=== PATIENT | female | born 1960 | race Caucasian/White ===

== ENCOUNTER 2018-06-07 02:44 | Outpatient (CLI) | payer MEDICAID, SELFPAY ==
--- NOTE | 2018-06-11 15:04 | HOLTER_ITS ---
DATE OF DICTATION: June 11, 2018 HOLTER MONITOR REPORT STUDY INDICATION: Chest tightness. REQUESTING PROVIDER: Latasha Vasquez N.P. FINDINGS: The patient was monitored for 1 day and 23 hours. Baseline sinus rhythm. Average heart rate 99 bpm, range 74-146 bpm. 50 PVC's, no PAC's. No pauses greater than 3 seconds or higher degree heart block. One patient event that did not correlate with arrhythmia. FINAL INTERPRETATION: Normal study. Symptoms don't correlate with arrhythmias.
== END 2018-06-07 03:04 ==
PROVIDERS: PCP Nurse Practitioner Family; Visit Provider Nurse Practitioner Family
DX: R07.89 Other chest pain (principal); I49.3 Ventricular premature depolarization
CPT/HCPCS: 93225

== ENCOUNTER 2018-06-11 11:40 | Outpatient (CLI) | payer MEDICAID, SELFPAY | END 2018-06-11 12:00 | PROVIDERS: PCP Nurse Practitioner Family; Visit Provider Nurse Practitioner Family | DX: R07.89 Other chest pain (principal); I49.3 Ventricular premature depolarization | CPT/HCPCS: 93226 ==

== ENCOUNTER 2018-09-04 08:31 | Outpatient (REF) | payer MEDICAID, SELFPAY ==
[2018-09-04 14:44] LABS: Anion Gap 13.6 mmol/L (3-11); BUN 15 mg/dL (7-18); CO2 25.4 mmol/L (21.0-32.0); CREATININE 0.87 mg/dL (0.55-1.02); Calcium 9.2 mg/dL (8.5-10.1); Chloride 94 mmol/L (98-107); Glucose 97 mg/dL (70-100); Potassium 3.8 mmol/L (3.5-5.1); Sodium 133 mmol/L (136-145)
[2018-09-04 15:22] LABS: Calculated LDL 97; Cholesterol 167 mg/dL (50-200); HDL Cholesterol 42 mg/dL (40-60); Triglyceride 144 mg/dL (30-150)
== END 2018-09-04 08:51 ==
LOC: NCHCN 08:31
PROVIDERS: PCP Nurse Practitioner Family; Visit Provider Nurse Practitioner Family
DX: I10 Essential (primary) hypertension (principal); E78.5 Hyperlipidemia, unspecified
CPT/HCPCS: 80048; 80061; 83721

== ENCOUNTER 2018-09-14 02:38 | Outpatient (CLI) | payer MEDICAID, SELFPAY ==
--- NOTE | 2018-09-14 09:22 | PFT_ITS ---
PULMONARY FUNCTION TEST REPORT DATE OF SERVICE: September 14, 2018 REQUESTING PROVIDER: Hugo Andrews DNP, EVELYN Spirometry shows moderately severe obstructive airways disease with significant bronchodilator response. Lung volumes show mild restriction. Diffusion capacity moderately reduced, which is normal when corrected to alveolar volume. Airways resistance normal. IMPRESSION: Combination of moderately severe obstructive airways disease with significant bronchodilator response and mild restrictive lung disease. This results in moderate diffusion defect. Clinical correlation recommended. When this study was compared to previous one from 05/03/11, FVC has declined by 440 cc's, FEV1 has declined by 580 cc's. Clinical correlation recommended. KRISTINA/mick D/
[2018-09-14] MEDS: Inhaler, Assist Device 1 EACH MC (10:57)
[2018-09-14] MEDS: Albuterol HFA 18 GM 200 PUFF INH IH (10:58)
== END 2018-09-14 02:58 ==
PROVIDERS: PCP Nurse Practitioner Family; Visit Provider Student in an Organized Health Care Education/Training Program
DX: R06.02 Shortness of breath (principal); F17.210 Nicotine dependence, cigarettes, uncomplicated; J98.8 Other specified respiratory disorders
CPT/HCPCS: 94060; 94150; 94726; 94729

== ENCOUNTER 2018-09-17 00:23 | Outpatient (CLI) | payer MEDICAID, SELFPAY ==
--- NOTE | 2018-09-17 07:40 | DI.MAMMO_ITS ---
SYMPTOM/DIAGNOSIS: SCREENING, Z12.39 MAMMOGRAMS: Mammograms were interpreted according to the usual protocol including computer analysis with CAD system, tomosynthesis and C view imaging. Comparison is made with exams from 2016 and 2018. The breasts are composed of scattered fibroglandular densities, breast density, Category B. No suspicious masses or suspicious microcalcifications are seen. There has been no significant change. IMPRESSION: Category 1, negative mammogram. Yearly screening mammography is recommended. [facility] ASSESSMENT OF FINDINGS: Negative. Category 1. Patient will receive a letter notifying them of these results. BI-RADS category B. There are scattered areas of fibroglandular density.
== END 2018-09-17 00:43 ==
PROVIDERS: PCP Nurse Practitioner Family; Visit Provider Nurse Practitioner Family
DX: Z12.31 Encounter for screening mammogram for malignant neoplasm of breast (principal)
CPT/HCPCS: 77063; 77067

== ENCOUNTER 2018-11-09 13:21 | Outpatient (REF) | payer MEDICAID, SELFPAY | END 2018-11-09 13:41 | LOC: LBN 13:21 | PROVIDERS: PCP Nurse Practitioner Family; Visit Provider Nurse Practitioner Family | DX: R35.0 Frequency of micturition (principal); R82.90 Unspecified abnormal findings in urine | CPT/HCPCS: 87077; 87086; 87186 ==

== ENCOUNTER 2019-04-13 15:30 | Emergency (ER) | payer MEDICAID, SELFPAY ==
[2019-04-13 15:36] VITALS: BP 122/71; PULSE 96; RESP 18; TEMP 36.7; O2SAT 98
--- NOTE | 2019-04-13 15:55 | W.ED.GENAD ---
Discharge Plan Disposition Patient Disposition: HOME Condition: Good Discharge Details Chief Complaint: Orthopedic Clinical Impression: Distal radial fracture Primary Care Provider: Hugo Andrews ED Provider: Yulisa Hunter Home Meds and New Rx's Prescriptions: Continued sertraline 100 MG tablet 100 mg PO BID RF: 0 quetiapine [Seroquel] 200 MG tablet 600 mg PO BID RF: 0 Discharge Instructions Instructions: Wrist Fracture in Adults (ED) Additional Instructions: Encourage rest, ice, elevation. Tylenol and ibuprofen as needed for discomfort. Please continue with splint to reevaluate orthopedics. Please call orthopedics on Monday, number listed below. Orthopedics will see you on Monday for reduction of your fracture. Please do not eat or drink anything after midnight Monday night. If you develop new or worsening symptoms please seek care urgently once again. Referrals: Hugo Andrews NP [Primary Care Provider] - Russ Lua MD [ [facility] STAFF PHYSICIAN] - Discharge Data Discharge Date/Time-TO BE ENTERED AT DEPARTURE: 04/13/19 18:19 Medical Decision Making Patient is a 58 year old RHD female presenting today with c/c of left forearm pain after FOOSH. States that she fell after slipping on the ice. Did not strike her head, denies LOC, denies pain in neck or back. Only injury to left forearm. Denies numbness/tingling. No pain in the hand, good ROM, no snuffbox tenderness. Has palpable deformity at the distal 1/3 of the forearm on both the radius and ulna. Plan for imaging. X-ray reviewed. Patient has a distal radius fracture that is impacted and dorsally angulated. More distal than I was expecting based on her exam. She also has nondisplaced ulnar fracture. Will consult with orthopedics. Recommendations from orthopedics is to splint hte patient with plan for f/u with them on Monday. ADvised patient be NPO Monday night after midnight. Discussed plan with [facility] patient. She was fitted with a sugar tong splint with plaster. Capillary refill and sensation remains intact. Encouraged RICE. She was given return precautions. All of their questions and concerns were addressed,she is in agreement iwth this plan . HPI General Mode of arrival: ambulatory. Date/Time Provider Initiated Documentation: 04/13/19 15:37. Limitations to Documentation: no limitations. Information obtained by: patient, family and RN notes reviewed. History of Present Illness 58 year old F presents to the emergency department with the chief complaint of left forearm pain, described as severe, with intensity rated at 10. Quality is described as stabbing, and is localized to the left. Patient reports no radiation. Patient started experiencing this minute(s) and it has been constant. Immobilization improves symptom(s), Movement worsens symptoms . Patient notes no other symptoms.. Patient did receive the following treatments prior to arrival, none Related Data Home Medications Medication Instructions Recorded Confirmed quetiapine [Seroquel] 600 mg PO BID 11/13/12 04/13/19 sertraline 100 mg PO BID 11/13/12 04/13/19 Allergies Allergy/AdvReac Type Severity Reaction Status Date / Time Sulfa (Sulfonamide Allergy Severe Unverified 04/13/19 15:48 Antibiotics) Penicillins Allergy Mild Unverified 04/13/19 15:48 aspirin Allergy Unverified 04/13/19 15:48 mushrooms Allergy Severe Uncoded 04/13/19 15:48 General Stated Complaint: Orthopedic AZALIA: 3 Review of Systems Constitutional Constitutional: Reports as per HPI, Denies chills, Denies fever(s), Denies headache(s) and Denies weakness ENT Ears, Nose, Mouth, and Throat: Denies headache(s) Cardiovascular Cardiovascular: Reports as per HPI Respiratory Respiratory: Reports as per HPI and Denies cough Musculoskeletal Musculoskeletal: Reports as per HPI and Denies tingling Integumentary/Breasts Skin/Breast: Reports as per HPI, Denies rash and Denies wounds Neurologic Neurologic: Reports as per HPI, Denies headache(s), Denies tingling, Denies paresthesias and Denies weakness [facility] Social History Smoking/Tobacco Use Status: Current every day Drug use: Never Exam Const General: cooperative, healthy appearing, comfortable, no acute distress, well developed and well groomed Nutritional Appearance: average body habitus and well nourished Orientation: alert and awake Resp Effort & Inspection: normal respiratory effort, able to speak in complete sentences and no respiratory distress Cardio Rate: regular rate Rhythm: regular rhythm Skin General skin exam: no rashes or lesions noted Lesions: no lesions Rashes: no rashes Trauma: no lacerations or abrasions Neuro General: alert and awake Cognition: normal cognition Speech: speech normal Gait: normal gait Motor: muscle tone normal throughout Sensory Exam: no sensory deficits noted Extrem Left upper extremity: normal capillary refill, elbow/forearm Details: normal to inspection, normal ROM, warmth, laceration, ecchymosis, deformity and distal pulses intact; no tenderness and no swelling, wrist Details: abnormal to inspection (palpable bony deformity to distal radius), tenderness Location: of the distal radius and of the distal ulna; not of the anatomic snuffbox, swelling Location: of the dorsal wrist, normal vascular exam and radial pulse present; ROM abnormal (limited flexion and extension), no unusual warmth, no abrasions, no lacerations, no ecchymosis, no crepitus and no deformity and hand Details: normal to inspection, normal capillary refill, neuromotor exam normal, neurosensory exam normal, tendon exam normal, vascular exam Details: radial pulse present, normal capillary refill and coolness; no cyanosis, normal ROM of fingers and no swelling; no tenderness, no swelling, no lacerations, no ecchymosis and no crepitus; abnormal to inspection and ROM limited Psych Appearance: grossly normal and well kempt Mental Status: mental status grossly normal Speech and Movement: speech and movement normal Course Vital Signs Vital signs: Vital Signs Temperature 36.7 C 04/13/19 15:36 Pulse 96 H 04/13/19 15:36 Respiratory Rate 18 04/13/19 15:36 Blood Pressure 122/71 04/13/19 15:36 Pulse Oximetry 98 04/13/19 15:36 Temperature 36.7 C 04/13/19 15:36 Temperature Source Skin 04/13/19 15:36 Pulse 96 H 04/13/19 15:36 Respiratory Rate 18 04/13/19 15:36 Respiratory Effort Non-Labored 04/13/19 15:52 Blood Pressure 122/71 04/13/19 15:36 Blood Pressure Position Sitting 04/13/19 15:36 Pulse Oximetry 98 04/13/19 15:36 Oxygen Delivery Method Room Air 04/13/19 15:36 Oxygen Flow Rate 0 04/13/19 15:36 Pain Level 7 04/13/19 15:53
--- NOTE | 2019-04-13 16:36 | DI.RAD_ITS ---
EXAM: XR FOREARM LT INDICATION: FOOSH. COMPARISON: No exams were available for comparison TECHNIQUE: 2D digital imaging was performed. FINDINGS: There is a fracture of the distal radius with dorsal angulation. There is overlap with the distal ul na. A nondisplaced fracture of the distal ulna is also present. No fractures are seen more proximall y in the radius and ulna. There is no dislocation at the elbow. IMPRESSION: Distal radial and ulnar fractures.
[2019-04-13] MEDS: Ibuprofen 600 MG TAB PO (17:06)
[2019-04-13] MEDS: Acetaminophen 500 MG TAB 1000 MG PO (17:06)
--- NOTE | 2019-04-13 17:06 | DI.VRAD_ITS ---
PROCEDURE INFORMATION: Exam: XR Left Forearm Exam date and time: 04/13/2019 3:56 PM Age: 58 years old Clinical indication: Other: Foosh TECHNIQUE: Imaging protocol: XR Left forearm. Views: 2 views. COMPARISON: No relevant prior studies available. FINDINGS: Bones/joints: Comminuted distal radial fracture with dorsal angulation. Suspect distal ulnar fracture. Soft tissues: Soft tissue swelling of the wrist and dorsum of the forearm. IMPRESSION: Fracture dislocation distal radius. Possible distal ulna fracture. Dictated and Authenticated by: Jagruti Angel MD. Ordering:LEANNE Márquez MD
== END 2019-04-13 18:19 | disposition home or self-care (01) ==
PROVIDERS: Emergency Provider Physician Assistant; PCP Nurse Practitioner Family
DX: S52.502A Unspecified fracture of the lower end of left radius, initial encounter for closed fracture (principal); S52.602A Unspecified fracture of lower end of left ulna, initial encounter for closed fracture; W00.0XXA Fall on same level due to ice and snow, initial encounter
CPT/HCPCS: 29125; 99284; 73090; 99283; L3650

== ENCOUNTER 2019-04-16 11:30 | Outpatient (CLI) | payer MEDICAID, SELFPAY ==
--- NOTE | 2019-04-16 11:33 | DI.RAD_ITS ---
EXAM: XR WRIST LT LIMITED INDICATION: f/u. COMPARISON: XR FOREARM LT from 04/13/2019 TECHNIQUE: 2D digital imaging was performed. FINDINGS: Two views were performed with the wrist in a plaster splint which somewhat obscures the bony detail. There is improvement in the alignment of the distal radial fracture when compared with the previous exam. The distal ulnar fracture is nondisplaced.
== END 2019-04-16 11:50 ==
PROVIDERS: PCP Nurse Practitioner Family; Visit Provider Orthopaedic Surgery
DX: S52.502D Unspecified fracture of the lower end of left radius, subsequent encounter for closed fracture with routine healing (principal); S52.692D Other fracture of lower end of left ulna, subsequent encounter for closed fracture with routine healing
CPT/HCPCS: 73100

== ENCOUNTER 2019-04-16 11:51 | Day surgery (SDC) | payer MEDICAID, SELFPAY ==
[2019-04-16 12:09] VITALS: BP 130/87; PULSE 102; RESP 18; TEMP 36.5; O2SAT 96
[2019-04-16] MEDS: Lactated Ringers 1,000 ML 80 ML IV (12:30)
--- NOTE | 2019-04-16 12:44 | DI.RAD_ITS ---
EXAM: XR WRIST LT LIMITED CLINICAL HISTORY: FRACTURED LEFT DISTAL RADIUS. TECHNIQUE: 2D and realtime digital imaging was performed. Fluoroscopy was provided in the OR. COMPARISON: XR WRIST LT LIMITED from 04/16/2019 FINDINGS: Hard copy images show improved alignment of the distal radial fracture. Fluoro Time: 0.02 seconds
[2019-04-16] MEDS: Normal Saline Flush 10 ML SYR (13:50)
[2019-04-16] MEDS: Bupivacaine 0.5% Pres-Free 30 ML VIAL (14:00)
--- NOTE | 2019-04-16 14:26 | W.PM.DSUDISC ---
Discharge Plan Disposition Patient Disposition: HOME Condition: Good Discharge Details Reason For Visit: (L) DISTAL RADIUS FX /Closed Reduction Attending Provider: Jonn Link Primary Care Provider: Hugo Andrews Home Meds and New Rx's Prescriptions: New hydrocodone-acetaminophen 5-325 mg tablet 1 tab PO Q6H PRN (Reason: pain) Qty: 7 RF: 0 Continued atorvastatin [Lipitor] 20 mg tablet 20 mg PO HS RF: 0 sertraline 100 MG tablet 100 mg PO DAILY RF: 0 quetiapine [Seroquel] 200 MG tablet 200 mg PO HS RF: 0 oxcarbazepine 300 mg Tablet 600 mg PO HS RF: 0 Spiriva with HandiHaler 18 mcg Capsule, W/Inhalation Device 1 cap INHALATION PRN PRNRF: 0 Discharge Instructions Additional Instructions: Cast care instructions. Elevate L hand above heart level as much as possible today and tomorrow. Wiggle fingers L hand 10 times/hour when awake to prevent stiffness and swelling. Keep cast dry. Follow up in 's office in one week. Referrals: Jonn Link MD [ [facility] STAFF PHYSICIAN] - (f/u in one week) Equipment/Supplies: Cast Activity:: Activity as Tolerated Shower/Bathe:: Cover Diet:: As Tolerated Discharge Orders Discharge Orders: Discharge Order (Routine); Ordered 04/16/19 Ordered By: Jonn Link DS: Diagnosis Discharge Diagnosis (1) Fracture of left distal radius: Status: Acute
[2019-04-16 15:00] VITALS: BP 161/84; PULSE 98; RESP 18; TEMP 36.2; O2SAT 97
--- NOTE | 2019-04-17 09:01 | ROE_ITS ---
REPORT OF OPERATIVE PROCEDURE DATE OF PROCEDURE April 16, 2019 PREOPERATIVE DIAGNOSES Displaced fracture extra-articular distal radius on the left. POSTOPERATIVE DIAGNOSES Displaced fracture extra-articular distal radius on the left. PROCEDURE Closed reduction of extra-articular fracture distal radius on the left. Application of short-arm cast. ANESTHESIA IV sedation, Dieter Bangura CRNA Supplemented by a single blood pressure cuff IV regional anesthesia and hematoma block performed by Shira Link. SURGEON Jonn Link M.D. INDICATIONS This is a 50-year-old white female who slipped on the ice landing on her out-stretched left wrist on 04/13/2019. She was seen in the Emergency Room and noted to have a displaced extra-articular fracture closed of the distal radius on the left. There was some mild shortening of the fracture on the AP vi ew. On the lateral view there was excessive dorsal tilting of more than 20 degrees. A closed manipul ative reduction was recommended to improve alignment position of the fracture for best function. It w as explained to the patient that if the closed reduction can be maintained for two weeks then she abbie l not require operative intervention. If the reduction cannot be maintained over the next two weeks, would advise open reduction and internal fixation of the fracture. The patient wished to proceed as s oon as possible in hopes to avoid open surgery. PROCEDURE The patient was taken to the Operating Room on 04/16/2019. She was given some IV sedation. The splint was removed. IV was started on the dorsum of her left hand. A proximal tourniquet was applied to the upper arm. The left upper extremity was then exsanguinated by elevation for 2 minutes. The tournique t was inflated to 230 mmHg and then I injected the IV into the left upper extremity 35 cc of 0.5% xyl ocaine solution. IV was then removed and the IV site covered with a Band-Aid. I then draw up 10 cc of 0.5% Marcaine solution, prepped the skin with alcohol and with 18-guage needle inject the 0.5% Katarzyna ine into the fracture hematoma performing a hematoma block. At this point, 5 minutes into the IV mabel onal anesthesia, the patient has good anesthesia. Her left hand was suspended by finger traps on an IV pole. Common traction of 12 pounds was applied to her arm. After waiting another couple of minutes I then performed a closed manipulative reduction. The reduction was checked with the mini C-Arm imag e intensifier. An anatomic reduction was obtained with the episcopal of radial length and inclinati on on the AP view and a correction of the dorsal tilt from greater total than 20 degrees of dorsal ti lt to 10 degrees of volar tilt. The reduction was the secured with a well-molded short-arm fiberglass cast. The patient's IV regional anesthesia was reversed without complications. The patient tolerated the procedure well and was discharged to the Recovery Room in good condition. The patient was later discharged home from the Day Surgery Unit when fully recovered from her sedatio n and IV regional anesthesia. She was given printed instruction on cast care and complications. She w as advised to try to elevate her left hand above heart level as much as possible for the next 48 hour s. She was encouraged to wiggle her fingers of her left hand 10 times an hour while awake to prevent stiffness and swelling. She will take Tylenol or Ibuprofen for mild pain. She was given a prescriptio n for breakthrough pain of hydrocodone with APAP of 5/325 1 tablet every 6 hours as needed. She will follow up in Dr. Link's office in one week for re-x-ray.
== END 2019-04-16 15:28 | disposition home or self-care (01) ==
PROVIDERS: PCP Nurse Practitioner Family; Visit Provider Orthopaedic Surgery
PROC: (CPT 25605; principal; 2019-04-16 13:00)
DX: S52.552A Other extraarticular fracture of lower end of left radius, initial encounter for closed fracture (principal); W00.0XXA Fall on same level due to ice and snow, initial encounter; F17.210 Nicotine dependence, cigarettes, uncomplicated
CPT/HCPCS: 25605; 76000; 73100; J1885; J2250; J2405; J2704

== ENCOUNTER 2019-04-23 11:08 | Outpatient (CLI) | payer MEDICAID, SELFPAY ==
--- NOTE | 2019-04-23 11:23 | DI.RAD_ITS ---
EXAM: XR WRIST LT LIMITED INDICATION: 1ST POST OP CLOSED REDUCTION WRIST. COMPARISON: XR WRIST LT LIMITED from 04/16/2019 TECHNIQUE: 2D digital imaging was performed. FINDINGS: The patient's wrist is in a cast. This obscures the underlying bony detail. There has been no hyde e in alignment of the distal left radial and ulnar fractures.
== END 2019-04-23 11:28 ==
PROVIDERS: PCP Nurse Practitioner Family; Visit Provider Orthopaedic Surgery
DX: S52.552D Other extraarticular fracture of lower end of left radius, subsequent encounter for closed fracture with routine healing (principal); S52.602D Unspecified fracture of lower end of left ulna, subsequent encounter for closed fracture with routine healing
CPT/HCPCS: 73100

== ENCOUNTER 2019-04-26 10:50 | Outpatient (REF) | payer MEDICAID, SELFPAY ==
[2019-04-26 19:04] LABS: PROTEIN 20.2 mg/dL
[2019-04-26 19:06] LABS: Prot/Crea Ur Ratio 0.16
[2019-04-26 19:07] LABS: COMMENT (LAB VIEW ONLY) 123.07 mg/dL
== END 2019-04-26 11:10 ==
LOC: NCHCN 10:50
PROVIDERS: PCP Nurse Practitioner Family; Visit Provider Nurse Practitioner Family
DX: I10 Essential (primary) hypertension (principal)
CPT/HCPCS: 82043; 82565; 82570; 84156

== ENCOUNTER 2019-04-30 11:18 | Outpatient (CLI) | payer MEDICAID, SELFPAY ==
--- NOTE | 2019-04-30 10:33 | DI.RAD_ITS ---
EXAM: XR WRIST LT LIMITED INDICATION: f/u fx. COMPARISON: XR FOREARM LT from 04/13/2019 XR WRIST LT LIMITED from 04/16/2019 XR WRIST LT LIMITED from 04/23/2019 TECHNIQUE: 2D digital imaging was performed. FINDINGS: Two views were performed with the wrist in a cast. Bony detail is obscured. A distal radial fractur e is faintly visualized.
== END 2019-04-30 11:38 ==
PROVIDERS: PCP Nurse Practitioner Family; Visit Provider Orthopaedic Surgery
DX: S52.552D Other extraarticular fracture of lower end of left radius, subsequent encounter for closed fracture with routine healing (principal)
CPT/HCPCS: 73100

== ENCOUNTER 2019-05-28 10:06 | Outpatient (CLI) | payer MEDICAID, SELFPAY ==
--- NOTE | 2019-05-28 09:52 | DI.RAD_ITS ---
EXAM: XR WRIST LT LIMITED CLINICAL HISTORY: F/U FRACTURE. TECHNIQUE: 2D digital imaging was performed. COMPARISON: XR WRIST LT LIMITED from 04/23/2019 XR WRIST LT LIMITED from 04/30/2019 FINDINGS: BONES: There has been no change in alignment of the healing distal left radial and ulnar fractures. Bones appear osteopenic. The cast has been removed. JOINTS: The carpal bones are normally aligned. There are mild degenerative changes of the hand and w rist. SOFT TISSUE: Normal. IMPRESSION: Stable healing distal left radial and ulnar fractures. DATA REPOSITORY: RADIATION DOSE DELIVERED:
== END 2019-05-28 10:26 ==
PROVIDERS: PCP Nurse Practitioner Family; Visit Provider Orthopaedic Surgery
DX: S52.552D Other extraarticular fracture of lower end of left radius, subsequent encounter for closed fracture with routine healing (principal); S52.692D Other fracture of lower end of left ulna, subsequent encounter for closed fracture with routine healing
CPT/HCPCS: 73100

== ENCOUNTER 2020-10-08 20:02 | Outpatient (REF) | payer MEDICAID, SELFPAY ==
[2020-10-08 15:43] LABS: HCT 39.8 % (36.0-46.0); HGB 13.3 g/dL (11.2-15.7); MCH 28.4 pg (27.0-33.0); MCHC 33.4 % (32.0-36.0); MCV 84.9 fL (80-95); MPV 10.2 fL (8.0-11.0); Platelet Count 273 10^3/uL (130-400); RBC 4.69 10^6/uL (3.93-5.22); RDW 12.9 % (11.7-14.6); RDW-SD 39.6 fL; WBC 6.68 10^3/uL (4.4-10.8)
[2020-10-08 16:53] LABS: ALT 46 U/L (14-59); AST 30 U/L (15-37); Alkaline Phosphatase 148 U/L (46-116); Anion Gap 12.1 mmol/L (3-11); BUN 16 mg/dL (7-18); Bilirubin, Total 0.3 mg/dL (0.2-1.0); CO2 25.9 mmol/L (21.0-32.0); CREATININE 0.8 mg/dL (0.55-1.02); Calcium 9.1 mg/dL (8.5-10.1); Calculated LDL 108 mg/dL (<100); Chloride 101 mmol/L (98-107); Cholesterol 184 mg/dL (<200); Glucose 108 mg/dL (74-106); HDL Cholesterol 46 mg/dL (40-60); Potassium 3.8 mmol/L (3.5-5.1); Sodium 139 mmol/L (136-145); Total Protein 7.5 g/dL (6.4-8.2); Triglyceride 154 mg/dL (<150)
== END 2020-10-08 20:03 | disposition home or self-care (01) ==
LOC: NCHCN 20:02
PROVIDERS: PCP Nurse Practitioner Family; Visit Provider Nurse Practitioner
DX: I10 Essential (primary) hypertension (principal); E78.5 Hyperlipidemia, unspecified; Z86.2 Personal history of diseases of the blood and blood-forming organs and certain disorders involving the immune mechanism
CPT/HCPCS: 80053; 80061; 85027

== ENCOUNTER 2020-12-07 12:14 | Emergency (ER) | payer MEDICAID, SELFPAY ==
[2020-12-07 12:37] VITALS: BP 166/81; PULSE 98; RESP 18; TEMP 37; O2SAT 97
--- NOTE | 2020-12-07 13:15 | DI.RAD_ITS ---
Exam(s) XR KNEE RT 3V AP,LAT,ABDI EXAM: XR KNEE RT 3V AP,LAT,ABDI CLINICAL HISTORY: pain laterally, heard pop. TECHNIQUE: 2D digital imaging was performed. COMPARISON: CR RIGHT KNEE 3 VIEWS from 08/16/2014 FINDINGS: There is evidence of posterior cruciate ligament surgery.. Channel noted and fixation plate adjacent to the cortex of the distal metaphysis of the femur Degenerative changes in the medial compartment and milder degenerative changes in the patellofemoral compartment. There is also a joint effusion. IMPRESSION: DATA REPOSITORY: RADIATION DOSE DELIVERED:
--- NOTE | 2020-12-07 14:48 | W.ED.GENAD ---
Discharge Plan Disposition Patient Disposition: HOME Condition: Stable Discharge Details Clinical Impression: Acute knee pain Primary Care Provider: Hallie Barba ED Provider: Pao Torres Home Meds and New Rx's Prescriptions: Continued atorvastatin [Lipitor] 20 mg tablet 20 mg PO HS RF: 0 sertraline 100 MG tablet 100 mg PO DAILY RF: 0 quetiapine [Seroquel] 200 MG tablet 200 mg PO HS RF: 0 oxcarbazepine 300 mg Tablet 600 mg PO HS RF: 0 Spiriva with HandiHaler 18 mcg Capsule, W/Inhalation Device 1 cap INHALATION PRN PRNRF: 0 Discharge Instructions Instructions: Knee Pain (ED) Additional Instructions: Please follow-up with your primary care physician and your orthopedist, Dr. Lewis Use the hinged knee brace while awake and then crutches as needed for ambulation Please return should you have calf pain or swelling, redness or worsening pain to your knee, or with new or worsening complaints Referrals: Hallie Barba [Primary Care Provider] - Discharge Data Discharge Date/Time-TO BE ENTERED AT DEPARTURE: 12/07/20 15:25 Medical Decision Making X-ray does not show acute abnormality, patient will follow up with her orthopedist given her complex surgery for years prior to arrival, placed in hinged knee brace and given crutches Will use ibuprofen and Tylenol for pain control Given low threshold to return with new or complaints No evidence septic joint DVT at this time Suspect meniscal tear or injury to lateral collateral ligament Ambulatory with antalgic but steady gait with Medical Records Medical records reviewed: Yes I reviewed the patient's medical records. HPI General Date/Time Provider Initiated Documentation: 12/07/20 12:30. HPI Narrative: This 60-year-old female presents with right knee pain since twisting her knee at bowling yesterday. She states she bent down to throw the ball and felt a popping sensation in her knee, causing it to give out. She landed on her knee. This is a new she had reconstruction on approximately 4 years ago. She denies any swelling. She has pain laterally. She denies any calf pain or swelling. She denies any shortness of breath. She denies any dizziness or weakness. Related Data Home Medications Medication Instructions Recorded Confirmed quetiapine [Seroquel] 200 mg PO HS 11/13/12 12/07/20 sertraline 100 mg PO DAILY 11/13/12 12/07/20 Spiriva with HandiHaler 1 cap INHALATION PRN PRN 04/15/19 12/07/20 oxcarbazepine 600 mg PO HS 04/15/19 12/07/20 atorvastatin 20 mg tablet 20 mg PO HS 04/16/19 12/07/20 Allergies Allergy/AdvReac Type Severity Reaction Status Date / Time aspirin Allergy Mild Skin Rash Verified 12/07/20 12:45 & upset stomach per pt Penicillins Allergy Mild Skin Rash Verified 12/07/20 12:45 Sulfa (Sulfonamide AdvReac Severe per pt Verified 12/07/20 12:45 Antibiotics) upset stomach mushrooms Allergy Severe Anaphylaxsi Uncoded 12/07/20 12:45 s General Stated Complaint: Orthopedic AZALIA: 4 Review of Systems All systems reviewed & are unremarkable except as noted in HPI and below PFSH Medical History Asthma Bipolar disorder Depression Hyperlipidemia Hypertension Smoker Surgical History H/O: hysterectomy History of ankle surgery Social History Smoking/Tobacco Use Status: Current every day Tobacco Type: cigarettes Smoking risk assessment performed?: Yes Alcohol Intake: never Drug use: Never Substance use type: does not use Do you feel safe at home: Yes Do you feel safe in your relationship?: Yes Exam Extrem Other: Knee with tenderness to the right lateral region, range of motion intact, no obvious joint laxity, 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, distal pulses are intact, no tenderness to ankle or hip with palpation, no visible evidence of trauma, no palpable effusion Course Vital Signs Vital signs: Vital Signs Temperature 37.0 C 12/07/20 12:37 Pulse 98 H 12/07/20 12:37 Respiratory Rate 18 12/07/20 12:37 Blood Pressure 166/81 H 12/07/20 12:37 Pulse Oximetry 97 12/07/20 12:37 Temperature 37.0 C 12/07/20 12:37 Temperature Source Skin 12/07/20 12:37 Pulse 98 H 12/07/20 12:37 Respiratory Rate 18 12/07/20 12:37 Respiratory Effort 12/07/20 12:42 Blood Pressure 166/81 H 12/07/20 12:37 Blood Pressure Position Sitting 12/07/20 12:37 Pulse Oximetry 97 12/07/20 12:37 Oxygen Delivery Method Room Air 12/07/20 12:37 Oxygen Flow Rate 0 12/07/20 12:37 Pain Level 7 12/07/20 12:37
== END 2020-12-07 15:25 | disposition home or self-care (01) ==
PROVIDERS: Emergency Provider Physician Assistant; PCP Nurse Practitioner
DX: M25.561 Pain in right knee (principal); X50.9XXA Other and unspecified overexertion or strenuous movements or postures, initial encounter
CPT/HCPCS: 29505; 73562; 99283

== ENCOUNTER 2021-09-07 16:58 | Outpatient (REF) | payer MEDICAID, SELFPAY ==
[2021-09-07 19:27] LABS: HGB 14.5 g/dL (11.2-15.7); MCH 29.2 pg (27.0-33.0); MCHC 34.5 % (32.0-36.0); MCV 85 fL (80-95); MPV 10.2 fL (8.0-11.0); Platelet Count 316 10^3/uL (130-400); RBC 4.96 10^6/uL (3.93-5.22); RDW 13.1 % (11.7-14.6); RDW-SD 40.4 fL; WBC 10.02 10^3/uL (4.4-10.8)
[2021-09-07 19:50] LABS: Anion Gap 10.4 mmol/L (3-11); BUN 21 mg/dL (7-18); CO2 25.6 mmol/L (21.0-32.0); CREATININE 0.9 mg/dL (0.55-1.02); Calcium 9.4 mg/dL (8.5-10.1); Chloride 98 mmol/L (98-107); Glucose 101 mg/dL (74-106); Potassium 3.7 mmol/L (3.5-5.1); Sodium 134 mmol/L (136-145)
[2021-09-07 20:18] LABS: Calculated LDL 104 mg/dL (<100); Cholesterol 186 mg/dL (<200); HDL Cholesterol 52 mg/dL (40-60); Triglyceride 150 mg/dL (<150)
== END 2021-09-07 16:59 | disposition home or self-care (01) ==
LOC: NCHCN 16:58
PROVIDERS: PCP Nurse Practitioner; Visit Provider Nurse Practitioner Family
DX: I10 Essential (primary) hypertension (principal); E78.5 Hyperlipidemia, unspecified; Z86.2 Personal history of diseases of the blood and blood-forming organs and certain disorders involving the immune mechanism
CPT/HCPCS: 80048; 80061; 85027

== ENCOUNTER → 2021-10-06 00:33 | Outpatient (CLI) | payer MEDICAID, SELFPAY ==
--- NOTE | 2021-10-06 | DI.MAMMO_ITS ---
Exam(s) MAMMO SCREENING EXAM: MAMMO SCREENING CLINICAL HISTORY: SCREENING FOR BREAST CA, Z12.39 TECHNIQUE: Mammograms were interpreted according to the usual protocol including computer analysis w [employer] CAD system, tomosynthesis and C-view imaging. COMPARISON: 2015 through 2019. FINDINGS: The breasts are composed of scattered fibroglandular densities, Breast Density category B. No suspicious masses or suspicious microcalcifications are seen. No skin thickening or abnormal axillary lymph nodes are seen. There has been no significant change from prior exams. IMPRESSION: BI-RADS Category 1, Negative mammogram Yearly screening mammography is recommended. Breast Density - Category B, scattered fibroglandular densities. A negative radiographic report should not delay biopsy if a dominant or clinically suspicious mass is present. Up to ten percent of cancers are not identified on mammography. A negative report may reinforce clinical impression. Adenosis and dense breasts may obscure an underlying neoplasm. False positive reports average 6 to 10%. Patient will receive a letter notifying them of these results.
== END ==
PROVIDERS: PCP Nurse Practitioner; Visit Provider Nurse Practitioner Family
DX: Z12.31 Encounter for screening mammogram for malignant neoplasm of breast (principal); R92.8 Other abnormal and inconclusive findings on diagnostic imaging of breast
CPT/HCPCS: 77063; 77067

== ENCOUNTER 2022-05-27 09:07 | Emergency (ER) | payer MEDICAID, SELFPAY ==
[2022-05-27 09:12] VITALS: BP 127/83; PULSE 108; RESP 18; TEMP 35.8; O2SAT 98
--- NOTE | 2022-05-27 09:15 | DI.RAD_ITS ---
Exam(s) XR HUMERUS RT XR SHOULDER RT COMPLETE 2+V EXAM: XR SHOULDER RT COMPLETE 2+V and XR humerus are T CLINICAL HISTORY: Fall, Pain. TECHNIQUE: 2D digital imaging was performed of the right shoulder. Seven images were obtained. AP, Grashey, Y-view and axillary views were obtained. COMPARISON: None. FINDINGS: BONES: No acute fracture is present. No bony destructive lesion is seen. JOINTS: No dislocation present. There are degenerative changes seen at the acromioclavicular and dominga ohumeral joints. SOFT TISSUE: Normal. IMPRESSION: No acute fracture or dislocation is present. DATA REPOSITORY: RADIATION DOSE DELIVERED:
--- NOTE | 2022-05-27 09:58 | ED.GENADUL_ITS ---
Discharge Plan Disposition Patient Disposition: Home Discharge Details Clinical Impression: Other sprain of right shoulder joint, initial encounter Primary Care Provider: Hallie Barba ED Provider: Josiane Moran Home Meds and New Rx's Prescriptions: Continued atorvastatin [Lipitor] 20 mg tablet 20 mg PO HS sertraline 100 MG tablet 100 mg PO QAM quetiapine [Seroquel] 200 MG tablet 200 mg PO HS Patient Comments: pt says 200mg hs, and 50mg am oxcarbazepine 300 mg Tablet 600 mg PO HS Spiriva with HandiHaler 18 mcg Capsule, W/Inhalation Device 1 cap INHALATION PRN PRN lisinopril-hydrochlorothiazide 20-25 mg tablet 1 tab PO DAILY Patient Comments: TAKE ONE TABLET BY MOUTH ONCE DAILY lisinopril 10 mg tablet 10 mg PO DAILY Patient Comments: TAKE ONE TABLET BY MOUTH EVERY DAY IN ADDITION TO LISINOPRIL/HCTZ COMBO Discharge Instructions Instructions: Shoulder Sprain (ED) Additional Instructions: Wear the sling as needed for comfort. You may apply ice and alternate with heat. Continue taking the Aleve. You were given 2 tablets of tramadol to take as directed over the next couple of days. Follow up with primary care provider in 3-5 days. Return to ED sooner if any worsening or concerns. Increase oral fluids. X-rays show some degenerative changes or arthritis. No acute fracture or dislocation. Referrals: Hallie Barba [Primary Care Provider] - 5 days Medical Decision Making 61-year-old female presents to the ER with a chief complaint of right upper arm pain status post a pulling type injury which occurred on Monday. Patient reports that she slipped on a wet floor and was holding a railing hyperextending her right shoulder. She has been taking Aleve with little to no relief. She does report that while sleeping her hand goes numb. Denies any neck pain back pain or any other associated symptoms. She reports that she is unable to take Tylenol or ibuprofen due to upset stomach. X-rays show degenerative changes no acute fracture or dislocation. Will place patient in a sling. Patient was given 2 tramadol to go and a lidocaine patch here. This text was generated using [employer] system, please disregard any oddities of phrase or misspellings. HPI General Mode of arrival: ambulatory . Date/Time Provider Initiated Documentation: 05/27/22 09:10 . Limitations to Documentation: no limitations . Information obtained by: patient, RN notes reviewed and old records reviewed . HPI Narrative: 61-year-old female presents to the ER with a chief complaint of right upper arm pain status post a pulling type injury which occurred on Monday. Patient reports that she slipped on a wet floor and was holding a railing hyperextending her right shoulder. She has been taking Aleve with little to no relief. She does report that while sleeping her hand goes numb. Denies any neck pain back pain or any other associated symptoms. She reports that she is unable to take Tylenol or ibuprofen due to upset stomach. She has no obvious deformity. CMS is intact. She has a past medical history of hypertension, high cholesterol, asthma bipolar disorder and depression she is a smoker. Related Data Home Medications Medication Instructions Recorded Confirmed quetiapine 200 mg tablet (Seroquel) 200 mg PO HS 11/13/12 05/27/22 sertraline 100 mg tablet 100 mg PO QAM 11/13/12 05/27/22 oxcarbazepine 300 mg tablet 600 mg PO HS 04/15/19 05/27/22 tiotropium bromide 18 mcg capsule 1 cap inhalation PRN PRN 04/15/19 05/27/22 with inhalation device (Spiriva with HandiHaler) atorvastatin 20 mg tablet (Lipitor) 20 mg PO HS 04/16/19 05/27/22 lisinopril 10 mg tablet 10 mg PO DAILY 05/27/22 05/27/22 lisinopril 20 1 tab PO DAILY 05/27/22 05/27/22 mg-hydrochlorothiazide 25 mg tablet Allergies Allergy/AdvReac Type Severity Reaction Status Date / Time aspirin Allergy Mild Skin Rash Verified 05/27/22 09:19 & upset stomach per pt Penicillins Allergy Mild Skin Rash Verified 05/27/22 09:19 Sulfa (Sulfonamide AdvReac Severe per pt Verified 05/27/22 09:19 Antibiotics) upset stomach mushrooms Allergy Severe Anaphylaxsi Uncoded 05/27/22 09:19 s General Stated Complaint: Orthopedic AZALIA: 4 Review of Systems All systems reviewed & are unremarkable except as noted in HPI and below Musculoskeletal Musculoskeletal: Reports arthralgias PFSH All Active Problems (Updated 05/27/22 @ 10:29 by Josiane Moran NP) Acute knee pain (Acute) Other sprain of right shoulder joint, initial encounter (Acute) Fracture of left distal radius (Acute) Medical History Asthma Bipolar disorder Depression Hyperlipidemia Hypertension Smoker Surgical History H/O: hysterectomy History of ankle surgery Social History Smoking/Tobacco Use Status: Current every day Tobacco Type: cigarettes Smoking risk assessment performed?: Yes Alcohol Intake: never Drug use: Never Substance use type: does not use Do you feel safe at home: Yes Do you feel safe in your relationship?: Yes Exam Extrem General: capillary refill normal Right upper extremity: shoulder/upper arm Details: tenderness Course Vital Signs Vital signs: Vital Signs Temperature 35.8 C L 05/27/22 09:12 Pulse 108 H 05/27/22 09:12 Respiratory Rate 18 05/27/22 09:12 Blood Pressure 127/83 05/27/22 09:12 Pulse Oximetry 98 05/27/22 09:12 Temperature 35.8 C L 05/27/22 09:12 Temperature Source Tympanic 05/27/22 09:12 Pulse 108 H 05/27/22 09:12 Respiratory Rate 18 05/27/22 09:12 Respiratory Effort Normal 05/27/22 09:22 Blood Pressure 127/83 05/27/22 09:12 Blood Pressure Position Sitting 05/27/22 09:12 Pulse Oximetry 98 05/27/22 09:12 Oxygen Delivery Method Room Air 05/27/22 09:12 Oxygen Flow Rate 0 05/27/22 09:12 Pain Level 7 05/27/22 09:12 Comment taking aleve denies ice or heat 05/27/22 09:12
[2022-05-27] MEDS: traMADol 50 MG TAB PO (10:28)
[2022-05-27] MEDS: Lidocaine 5% Patch 1 PATCH TP (10:29)
== END 2022-05-27 10:37 | disposition home or self-care (01) ==
PROVIDERS: Emergency Provider Registered Nurse Emergency; PCP Nurse Practitioner
DX: S43.491A Other sprain of right shoulder joint, initial encounter (principal); W01.0XXA Fall on same level from slipping, tripping and stumbling without subsequent striking against object, initial encounter
CPT/HCPCS: 99284; 73030; 73060; 99283

== ENCOUNTER 2022-11-28 14:59 | Outpatient (REF) | payer MEDICAID, SELFPAY ==
[2022-11-28 15:30] LABS: ALT 64 U/L (14-59); AST 43 U/L (15-37); Albumin 3.6 g/dL (3.4-5.0); Alkaline Phosphatase 152 U/L (46-116); Anion Gap 8.2 mmol/L (3-11); BUN 16 mg/dL (7-18); Bilirubin, Total 0.3 mg/dL (0.2-1.0); CO2 25.8 mmol/L (21.0-32.0); CREATININE 0.9 mg/dL (0.55-1.02); Calcium 8.8 mg/dL (8.5-10.1); Calculated LDL 93 mg/dL (<100); Chloride 103 mmol/L (98-107); Cholesterol 164 mg/dL (<200); Estimated GFR 72.28 (mL/min/1.73m2); Glucose 118 mg/dL (74-106); HDL Cholesterol 44 mg/dL (40-60); Sodium 137 mmol/L (136-145); Total Protein 7.4 g/dL (6.4-8.2); Triglyceride 137 mg/dL (<150)
== END 2022-11-28 15:00 | disposition home or self-care (01) ==
LOC: NCHCN 14:59
PROVIDERS: PCP Physician Assistant; Visit Provider Physician Assistant
DX: I10 Essential (primary) hypertension (principal); E78.5 Hyperlipidemia, unspecified
CPT/HCPCS: 80053; 80061

== ENCOUNTER 2023-01-17 13:53 | Outpatient (REF) | payer MEDICAID, SELFPAY ==
[2023-01-17 15:34] LABS: Hemoglobin A1C 6.1 % (<5.7)
[2023-01-17 15:52] LABS: Iron 60 ug/dL (50-170)
[2023-01-17 17:43] LABS: ALT 74 U/L (14-59); AST 55 U/L (15-37); Albumin 4.3 g/dL (3.4-5.0); Alkaline Phosphatase 154 U/L (46-116); Bilirubin, Direct 0.1 mg/dL (0.0-0.2); Bilirubin, Total 0.3 mg/dL (0.2-1.0); Total Protein 7.9 g/dL (6.4-8.2)
[2023-01-18 10:47] LABS: Hepatitis C Ab w Rflx HCV PCR Negative (Negative)
[2023-01-19 12:37] LABS: Mitochondrial Ab, M2 <0.1 U
== END 2023-01-17 13:54 | disposition home or self-care (01) ==
LOC: NCHCN 13:53
PROVIDERS: PCP Physician Assistant; Visit Provider Physician Assistant
DX: R94.5 Abnormal results of liver function studies (principal)
CPT/HCPCS: 80076; 83516; 86803; 83036; 83540

== ENCOUNTER → 2023-02-28 02:15 | Outpatient (CLI) | payer MEDICAID, SELFPAY ==
--- NOTE | 2023-02-28 | DI.CTLCSR_ITS ---
Exam(s) CT CHEST LUNG CANCER SCREEN EXAM: CT CHEST LUNG CANCER SCREEN CLINICAL HISTORY: NICOTINE DEPENDENCE F17.200 SCREENING FOR LUNG CANCER TECHNIQUE: Imaging Protocol: Axial computed tomography images with coronal and sagittal reformatted images were created and reviewed COMPARISON: No exams were available for comparison FINDINGS: Tracheobronchial tree: Patent where visualized. Pulmonary parenchyma: No consolidation or dominant measurable mass. No architectural distortion. Ther e is scarring in the left upper lobe. Lung Nodules: None. Mediastinum and Kirsty: No dominant adenopathy or fluid collection. The esophagus is unremarkable. Thyroid gland: Unremarkable. Lymph nodes: Unremarkable. Pleura: No effusion or pneumothorax. Heart: The heart is not dilated. Mild coronary artery calcification. No pericardial effusion. Aorta: Thoracic aorta non-dilated. Upper abdomen: Unremarkable. Soft Tissues: Unremarkable. Bones: Within normal limits for the patient's age. IMPRESSION: No pulmonary nodules. Lung RADS Cat 1 - Negative: No nodules and definitely benign nodules Lung-RADS 1.0 CATEGORIES: Category 0 - Prior chest CT exam(s) being located for comparison. Category 1 - Annual screening in 12 months. No nodules or definitely benign nodules. Category 2 - Annual screening in 12 months. Benign appearance. Nodules with low likelihood of becomin g active cancer. Category 3 - 6-month follow-up. Probably benign. Short-term follow-up suggested. Nodules with low lik elihood of becoming active cancer. Category 4A - 3-month follow-up and CT/PET if >8 mm in size. Suspicious finding. Findings which requi re additional testing. Category 4B - Findings which require additional testing and tissue sampling. Suspicious finding. Category 4X - Category 3 or 4 nodules with additional features or imaging findings that increases the suspicion of malignancy. Modifier S- Potentially clinically significant finding. (Non lung cancer) RADIATION DOSE DELIVERED: Total DLP Total DLP DATA REPOSITORY: All CT scans at this facility are submitted to the National Radiology Data Registry (NRDR) Dose Index Registry (DIR) with the [employer] ([employer]). RADIATION OPTIMIZATION: All CT scans at this facility use at least one of these dose optimization te chniques: automated exposure control; mA and/or kV adjustment per patient size (includes targeted exa ms where dose is matched to clinical indication); or iterative reconstruction.
== END ==
PROVIDERS: PCP Physician Assistant; Visit Provider Physician Assistant
DX: Z12.2 Encounter for screening for malignant neoplasm of respiratory organs (principal); F17.210 Nicotine dependence, cigarettes, uncomplicated
CPT/HCPCS: 71271

== ENCOUNTER 2023-08-08 14:44 | Emergency (ER) | payer MEDICAID, SELFPAY ==
--- NOTE | 2023-08-08 14:45 | DI.RAD_ITS ---
Exam(s) XR ANKLE RT COMPLETE XR FOOT RT COMPLETE EXAM: XR ANKLE RT COMPLETE CLINICAL HISTORY: pain s/p fall. TECHNIQUE: 2D digital imaging was performed. Three views of the ankle and foot. COMPARISON: CR XR FOOT RT COMPLETE from 08/08/2023 FINDINGS: BONES: No acute fracture is present. No bony destructive lesion is seen. Heel spurs. Lucencies rel ated to prior hardware. Smoothly marginated bony density beneath the medial malleolus related to old trauma. JOINTS: The ankle mortise is normally aligned. Degenerative changes at ankle joint and intertarsal j oints. Mild degenerative changes of 1st MTP joint.. SOFT TISSUE: Normal. IMPRESSION: Degenerative changes. No acute abnormality. DATA REPOSITORY: RADIATION DOSE DELIVERED:
[2023-08-08 14:47] VITALS: BP 208/102; PULSE 118; RESP 15; TEMP 37; O2SAT 97
--- NOTE | 2023-08-08 14:58 | W.ED.GENAD ---
Discharge Plan Disposition Patient Disposition: Home Condition: Stable Discharge Details Clinical Impression: Right ankle sprain, Right foot sprain Primary Care Provider: Tomas Dickens ED Provider: Troy Witt Home Meds and New Rx's Prescriptions: Continued atorvastatin [Lipitor] 20 mg tablet 20 mg PO HS bisacodyl [Dulcolax (bisacodyl)] 5 mg tablet,delayed release (DR/EC) 5 mg PO ONCE Qty: 4 0RF Rx Instructions: Take per colonoscopy instructions provided by ordering providers office polyethylene glycol 3350 17 gram/dose powder 17 g PO ONCE Qty: 238 0RF Rx Instructions: Take per colonoscopy instructions provided by ordering providers office ketoconazole 2 % cream 1 applic topical DAILY Qty: 120 6RF Rx Instructions: Apply to toenails once daily hydroxyzine HCl 25 mg tablet 25 mg PO QDAY PRN fluticasone propionate [Flovent HFA] 110 mcg/actuation HFA aerosol inhaler 2 puff inhalation BID naproxen sodium [Aleve] 220 mg capsule 440 mg PO DAILY PRN amlodipine 5 mg tablet 5 mg PO DAILY clotrimazole-betamethasone 1-0.05 % cream 1 applic topical BID tiotropium bromide [Spiriva with HandiHaler] 18 mcg capsule, w/inhalation device 1 cap inhalation DAILY Rx Instructions: puncture 1 cap using device; one dose = 2 inhalations sertraline 100 MG tablet 100 mg PO QAM quetiapine [Seroquel] 200 MG tablet 200 mg PO HS Patient Comments: pt says 200mg hs, and 50mg am oxcarbazepine 300 mg Tablet 600 mg PO HS lisinopril-hydrochlorothiazide 20-25 mg tablet 1 tab PO DAILY Patient Comments: TAKE ONE TABLET BY MOUTH ONCE DAILY lisinopril 10 mg tablet 5 mg PO DAILY Patient Comments: TAKE ONE TABLET BY MOUTH EVERY DAY IN ADDITION TO LISINOPRIL/HCTZ COMBO Discharge Instructions Additional Instructions: Follow-up with your primary care provider within 1 to 2 weeks. Should also have your blood pressure rechecked with them Use the crutches and walking boot for comfort as needed If you feel more ill, have severe worsening pain or new symptoms such as high fevers return to the emergency department for reevaluation HPI General Mode of arrival: ambulatory. Date/Time Provider Initiated Documentation: 08/08/23 14:46. Limitations to Documentation: no limitations. Information obtained by: patient. History of Present Illness 63 year old F presents to the emergency department with the chief complaint of right ankle/foot pain, described as moderate, Quality is described as aching, Patient started experiencing this day(s) (1) and it has been constant. No relieving factors improve symptom(s), No exacerbating factors reported . Patient notes no other symptoms.; denies fever/chills. Patient did receive the following treatments prior to arrival, none Related Data Home Medications Medication Instructions Recorded Confirmed quetiapine 200 mg tablet (Seroquel) 200 mg PO HS 11/13/12 05/15/23 sertraline 100 mg tablet 100 mg PO QAM 11/13/12 05/15/23 oxcarbazepine 300 mg tablet 600 mg PO HS 04/15/19 05/15/23 atorvastatin 20 mg tablet (Lipitor) 20 mg PO HS 04/16/19 05/15/23 lisinopril 20 1 tab PO DAILY 05/27/22 05/15/23 mg-hydrochlorothiazide 25 mg tablet fluticasone propionate 110 2 puff inhalation BID 02/16/23 05/15/23 mcg/actuation HFA aerosol inhaler (Flovent HFA) hydroxyzine HCl 25 mg tablet 25 mg PO QDAY PRN 02/16/23 05/15/23 naproxen sodium 220 mg capsule 440 mg PO DAILY PRN 02/16/23 05/15/23 (Aleve) bisacodyl 5 mg tablet,delayed 5 mg PO ONCE #4 tabs 03/09/23 05/15/23 release (Dulcolax (bisacodyl)) lisinopril 10 mg tablet 5 mg PO DAILY 03/09/23 05/15/23 polyethylene glycol 3350 17 17 g PO ONCE #238 grams 03/09/23 05/15/23 gram/dose oral powder amlodipine 5 mg tablet 5 mg PO DAILY 03/24/23 05/15/23 clotrimazole-betamethasone 1 1 applic topical BID 03/24/23 05/15/23 %-0.05 % topical cream tiotropium bromide 18 mcg capsule 1 cap inhalation DAILY 03/24/23 05/15/23 with inhalation device (Spiriva with HandiHaler) ketoconazole 2 % topical cream 1 applic topical DAILY #120 grams 05/01/23 05/15/23 Previous Rx's Medication Instructions Recorded bisacodyl 5 mg tablet,delayed 5 mg PO ONCE #4 tabs 03/09/23 release (Dulcolax (bisacodyl)) polyethylene glycol 3350 17 17 g PO ONCE #238 grams 03/09/23 gram/dose oral powder ketoconazole 2 % topical cream 1 applic topical DAILY #120 grams 05/01/23 Allergies Allergy/AdvReac Type Severity Reaction Status Date / Time aspirin Allergy Mild Skin Rash Verified 05/15/23 12:15 & upset stomach per pt Penicillins Allergy Mild Skin Rash Verified 05/15/23 12:15 codeine Allergy Unknown rash, GI Verified 05/15/23 12:15 update Sulfa (Sulfonamide AdvReac Severe per pt Verified 05/15/23 12:15 Antibiotics) upset stomach zinc AdvReac Mild GI upset, Verified 05/15/23 12:15 dizziness clonazepam [From Klonopin] AdvReac Unknown GI upset Verified 05/17/23 12:44 mushrooms Allergy Severe Anaphylaxsi Uncoded 05/15/23 12:15 s General Stated Complaint: Orthopedic AZALIA: 3 Review of Systems All systems reviewed & are unremarkable except as noted in HPI and below Constitutional Constitutional: Denies chills, Denies fever(s) and Denies weakness Cardiovascular Cardiovascular: Denies chest pain and Denies dyspnea Respiratory Respiratory: Denies dyspnea Gastrointestinal Gastrointestinal: Denies vomiting Integumentary/Breasts Skin/Breast: Denies rash Neurologic Neurologic: Denies weakness Exam Const General: no acute distress Orientation: alert [facility] Head: normal to inspection Ears: external ears normal General nose exam: external nose normal Mouth: moist mucous membranes Eyes General: appearance normal, both eyes and all related structures Neck Neck: normal visual inspection Resp Effort & Inspection: normal respiratory effort and able to speak in complete sentences Cardio Rate: regular rate Skin General skin exam: no rashes or lesions noted Neuro General: patient alert and patient oriented x3 Extrem General: normal to inspection, full ROM and capillary refill normal Psych Mental Status: mental status grossly normal Course Vital Signs Vital signs: Vital Signs Temperature 37.0 C 08/08/23 14:47 Pulse 118 H 08/08/23 14:47 Respiratory Rate 15 08/08/23 14:47 Blood Pressure 208/102 H 08/08/23 14:47 Pulse Oximetry 97 08/08/23 14:47 Temperature 37.0 C 08/08/23 14:47 Temperature Source Tympanic 08/08/23 14:47 Pulse 118 H 08/08/23 14:47 Respiratory Rate 15 08/08/23 14:47 Respiratory Effort Normal 08/08/23 14:49 Blood Pressure 208/102 H 08/08/23 14:47 Blood Pressure Position Sitting 08/08/23 14:47 Pulse Oximetry 97 08/08/23 14:47 Pain Level 0 08/08/23 14:47 Medical Decision Making 63-year-old female states she was walking her dog yesterday went down a hill and she inverted her ankle. Did not fall or hit her head. Has had pain in the medial ankle as well as the medial foot since and came in for evaluation. She is alert and oriented and in no distress on exam. Her leg is not swollen, she has full range of motion of the ankle, intact plantarflexion with the calf is squeezed, has tenderness over the lateral malleolus and lateral midfoot without palpable or visible deformities, intact sensation and pulses. Suspect ankle and foot sprain will obtain x-rays to evaluate for fracture. X-rays unremarkable, patient stable. Suspect sprain, will provide crutches and short walking boot to use as needed. Heart rate currently my exam is 90, advised to have her blood pressure rechecked with her PCP within a week. Return precautions given Differential Diagnosis Differential Diagnosis: Fracture, sprain, dislocation Medical Records Medical records reviewed: Yes I reviewed the patient's medical records. Imaging Data Radiologic Study: Attestation: I personally reviewed and interpreted this imaging study as follows: Imaging: X-Ray Radiologist's impression: No acute findings on ankle and foot x-rays Quality:SDOH Health Related Social Needs: No Data to Display PFSH All Active Problems Right foot sprain (Acute) Right ankle sprain (Acute) Nail dystrophy (Acute) Ingrown toenail (Acute) Fracture of second toe, right, closed (Acute) Hypertension (Chronic) Hyperlipidemia (Acute) Smoker (Acute) Bipolar disorder (Acute) Stage 2 moderate COPD by GOLD classification (Acute) Pain due to onychomycosis of toenails of both feet (Acute) Prediabetes (Acute) Elevated blood sugar (Acute) Persistent headaches (Acute) Knee pain (Acute) Anxiety associated with depression (Acute) Generalized headaches (Acute) Edentulous (Acute) Chronic shoulder pain (Acute) Onychomycosis (Acute) Illiteracy (Acute) Medical History Hx of iron deficiency anemia Exertional shortness of breath Shoulder pain, right Acute knee pain Asthma Depression Fracture of left distal radius Surgical History S/P [id number] 11/11/2008 History of meniscal 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 Ch H/O colonoscopy 05/13/2011 History of ankle surgery Open reduction right fibula H/O: hysterectomy Social History Smoking/Tobacco Use Status: Current every day Tobacco Type: cigarettes Smoking packs per day: 0.5 Smoking cigarettes per day: 10.0 Smoking risk assessment performed?: Yes Alcohol Intake: never Drug use: Never Substance use type: does not use Household members: significant other and other Details: grandson Housing: apartment current occupation: disabled Current gender identity: female Do you feel safe at home: Yes Do you feel safe in your relationship?: Yes
[2023-08-08] MEDS: Naproxen 250 MG TAB 500 MG PO (15:05)
== END 2023-08-08 15:45 | disposition home or self-care (01) ==
LOC: ER 15:52
PROVIDERS: Emergency Provider Emergency Medicine; PCP Physician Assistant
DX: S93.401A Sprain of unspecified ligament of right ankle, initial encounter (principal); S93.601A Unspecified sprain of right foot, initial encounter; W01.0XXA Fall on same level from slipping, tripping and stumbling without subsequent striking against object, initial encounter
CPT/HCPCS: 99283; 73610; 73630

== ENCOUNTER 2024-04-17 11:39 | Outpatient (REF) | payer MEDICAID, SELFPAY ==
[2024-04-17 15:39] LABS: HCT 43.1 % (36.0-46.0); HGB 14.1 g/dL (11.2-15.7); MCH 28.9 pg (27.0-33.0); MCHC 32.7 % (32.0-36.0); MCV 88 fL (80-95); MPV 10.3 fL (8.0-11.0); Platelet Count 275 10^3/uL (130-400); RBC 4.88 10^6/uL (3.93-5.22); RDW 12.9 % (11.7-14.6); RDW-SD 42.1 fL; WBC 9.04 10^3/uL (4.4-10.8)
[2024-04-17 15:58] LABS: Anion Gap 10.6 mmol/L (3-11); BUN 39 mg/dL (7-18); CO2 27.4 mmol/L (21.0-32.0); CREATININE 1.1 mg/dL (0.55-1.02); Calcium 9.6 mg/dL (8.5-10.1); Calculated LDL 115 mg/dL (<100); Chloride 101 mmol/L (98-107); Cholesterol 202 mg/dL (<200); Estimated GFR 56.46 (mL/min/1.73m2); Glucose 115 mg/dL (74-106); HDL Cholesterol 54 mg/dL (40-60); Potassium 4.2 mmol/L (3.5-5.1); Sodium 139 mmol/L (136-145); Triglyceride 166 mg/dL (<150)
[2024-04-17 16:22] LABS: Hemoglobin A1C 6.1 % (<5.7)
== END 2024-04-17 11:40 | disposition home or self-care (01) ==
LOC: NCHCN 11:39
PROVIDERS: PCP Physician Assistant; Visit Provider Physician Assistant
DX: J44.9 Chronic obstructive pulmonary disease, unspecified (principal); I10 Essential (primary) hypertension; E78.5 Hyperlipidemia, unspecified; R73.03 Prediabetes
CPT/HCPCS: 80048; 80061; 85027; 83036

== ENCOUNTER 2024-05-04 10:09 | Emergency (ER) | payer MEDICAID, SELFPAY ==
[2024-05-04 10:14] VITALS: BP 182/94; PULSE 110; RESP 18; TEMP 36.6; O2SAT 96
--- NOTE | 2024-05-04 10:15 | DI.RAD_ITS ---
Exam(s) XR KNEE LT 3V AP,LAT,ABDI EXAM: XR KNEE LT 3V AP,LAT,ABDI CLINICAL HISTORY: fell, posterior knee pain. TECHNIQUE: 2D digital imaging was performed. COMPARISON: CR XR KNEE RT 3V AP,LAT,ABDI from 12/07/2020 FINDINGS: 3 views There is no evidence of acute fracture nor obvious joint effusion. There is [id number] narrowing of the medial compartment. Lateral compartment exhibits normal heigh t. Moderate degenerative changes evident in the patellofemoral compartment. IMPRESSION: Advanced degenerative narrowing of the medial compartment. No acute osseous findings. DATA REPOSITORY: RADIATION DOSE DELIVERED:
--- NOTE | 2024-05-04 10:15 | DI.RAD_ITS ---
Exam(s) XR KNEE RT 3V AP,LAT,ABDI EXAM: XR KNEE RT 3V AP,LAT,ABDI CLINICAL HISTORY: fell, medial knee pain. TECHNIQUE: 2D digital imaging was performed. COMPARISON: CR XR KNEE RT 3V AP,LAT,ABDI from 12/07/2020 CR,XR XR KNEE LT 3V AP,LAT,ABDI from 05/04/2024 FINDINGS: 3 views Again noted is evidence of previous ACL surgery. There is no evidence of acute fracture. Small amount of increased joint fluid is noted. There is so me osteoarthritic degenerative change in the right knee again noted which is predominately in the med ial compartment with mild narrowing of the medial compartment and marginal osteophytes. Lateral comp artment exhibits normal height. Enthesophyte is noted on the anterosuperior patella at the quadricep s insertion site, similar to previous. IMPRESSION: Previous ACL surgery. Degenerative changes in the medial compartment. No acute fractures evident. DATA REPOSITORY: RADIATION DOSE DELIVERED:
--- NOTE | 2024-05-04 10:29 | ED.GENADUL_ITS ---
Discharge Plan Disposition Patient Disposition: Home Condition: Good Discharge Details Clinical Impression: Synovial cyst of popliteal space [Alvarez], left knee, Osteoarthritis of right knee Primary Care Provider: Tomas Dickens ED Provider: Shekhar Dyer Home Meds and New Rx's Prescriptions: New lidocaine [Lidoderm] 5 % adhesive patch,medicated 1 patch Topical Q24H Qty: 15 0RF No Action atorvastatin [Lipitor] 20 mg tablet 20 mg PO HS bisacodyl [Dulcolax (bisacodyl)] 5 mg tablet,delayed release (DR/EC) 5 mg PO ONCE Qty: 4 0RF Rx Instructions: Take per colonoscopy instructions provided by ordering providers office polyethylene glycol 3350 17 gram/dose powder 17 g PO ONCE Qty: 238 0RF Rx Instructions: Take per colonoscopy instructions provided by ordering providers office ketoconazole 2 % cream 1 applic topical DAILY Qty: 120 6RF Rx Instructions: Apply to toenails once daily hydroxyzine HCl 25 mg tablet 25 mg PO QDAY PRN fluticasone propionate [Flovent HFA] 110 mcg/actuation HFA aerosol inhaler 2 puff inhalation BID naproxen sodium [Aleve] 220 mg capsule 440 mg PO DAILY PRN amlodipine 5 mg tablet 5 mg PO DAILY clotrimazole-betamethasone 1-0.05 % cream 1 applic topical BID tiotropium bromide [Spiriva with HandiHaler] 18 mcg capsule, w/inhalation device 1 cap inhalation DAILY Rx Instructions: puncture 1 cap using device; one dose = 2 inhalations sertraline 100 MG tablet 100 mg PO QAM quetiapine [Seroquel] 200 MG tablet 200 mg PO HS Patient Comments: pt says 200mg hs, and 50mg am oxcarbazepine 300 mg Tablet 600 mg PO HS lisinopril-hydrochlorothiazide 20-25 mg tablet 1 tab PO DAILY Patient Comments: TAKE ONE TABLET BY MOUTH ONCE DAILY lisinopril 10 mg tablet 5 mg PO DAILY Patient Comments: TAKE ONE TABLET BY MOUTH EVERY DAY IN ADDITION TO LISINOPRIL/HCTZ COMBO Discharge Instructions Instructions: Osteoarthritis, Alvarez's Cyst (DC) Additional Instructions: At this time there is no evidence of fracture or other significant abnormality for your x-rays. Please continue to apply the Voltaren gel 2-3 times per day to each knee. Please use Lidoderm patches as needed to help with the pain. Please follow-up closely with the campaign management specialist Dr. Ch. You can also gently wrap your left knee with an Sukhwinder wrap to help with the resolution of the Alvarez's cyst. If you notice any worsening of your symptoms, or any new symptoms such as vomiting, diarrhea, fever, chills, shortness of breath, chest pain, numbness, weakness, or fainting , please return immediately to the emergency d epartment for reevaluation. Please follow up with your primary care provider as soon as possible for reassessment and reevaluation. As always, it was a pleasure participating in your medical care today. Referrals: Saurav Ch [ [facility] STAFF PHYSICIAN] - [facility] General Date/Time Provider Initiated Documentation: 05/04/24 10:13 . HPI Narrative: 63-year-old female with past medical history of previous knee surgery, COPD, high cholesterol, depression, who presents today for evaluation of knee pain. Patient states that 2 weeks ago she fell and slipped on her driveway, and got up quickly. Between the quick falling and trauma and getting up quickly she ended up having pain in both of her knees. It has been persistent for the last 2 weeks, it is mild in nature, worse with movement. Left knee has pain in the posterior aspect of the knee, she has been wearing a knee brace and taking Tylenol but has had no improvement. Right knee has had pain in the medial aspect, worse with movement. There is some swelling in the left knee, minimal swelling in the right. Dr. Ch did her previous surgery. She has not had an opportunity to follow-up with them. Related Data Home Medications ?Medication ?Instructions ?Recorded ?Confirmed quetiapine 200 mg tablet (Seroquel) 200 mg PO HS 11/13/12 05/04/24 sertraline 100 mg tablet 100 mg PO QAM 11/13/12 05/04/24 oxcarbazepine 300 mg tablet 600 mg PO HS 04/15/19 05/04/24 atorvastatin 20 mg tablet (Lipitor) 20 mg PO HS 04/16/19 05/04/24 lisinopril 20 1 tab PO DAILY 05/27/22 05/04/24 mg-hydrochlorothiazide 25 mg tablet fluticasone propionate 110 2 puff inhalation BID 02/16/23 05/04/24 mcg/actuation HFA aerosol inhaler (Flovent HFA) hydroxyzine HCl 25 mg tablet 25 mg PO QDAY PRN 02/16/23 05/04/24 naproxen sodium 220 mg capsule 440 mg PO DAILY PRN 02/16/23 05/04/24 (Aleve) bisacodyl 5 mg tablet,delayed 5 mg PO ONCE #4 tabs 03/09/23 05/04/24 release (Dulcolax (bisacodyl)) lisinopril 10 mg tablet 5 mg PO DAILY 03/09/23 05/04/24 polyethylene glycol 3350 17 17 g PO ONCE #238 grams 03/09/23 05/04/24 gram/dose oral powder amlodipine 5 mg tablet 5 mg PO DAILY 03/24/23 05/04/24 clotrimazole-betamethasone 1 1 applic topical BID 03/24/23 05/04/24 %-0.05 % topical cream tiotropium bromide 18 mcg capsule 1 cap inhalation DAILY 03/24/23 05/04/24 with inhalation device (Spiriva with HandiHaler) ketoconazole 2 % topical cream 1 applic topical DAILY #120 grams 05/01/23 05/04/24 lidocaine 5 % topical patch 1 patch topical Q24H #15 ea 05/04/24 (Lidoderm) Previous Rx's ?Medication ?Instructions ?Recorded bisacodyl 5 mg tablet,delayed 5 mg PO ONCE #4 tabs 03/09/23 release (Dulcolax (bisacodyl)) polyethylene glycol 3350 17 17 g PO ONCE #238 grams 03/09/23 gram/dose oral powder ketoconazole 2 % topical cream 1 applic topical DAILY #120 grams 05/01/23 lidocaine 5 % topical patch 1 patch topical Q24H #15 ea 05/04/24 (Lidoderm) Allergies Allergy/AdvReac Type Severity Reaction Status Date / Time aspirin Allergy Mild Skin Rash Verified 05/04/24 10:17 & upset stomach per pt Penicillins Allergy Mild Skin Rash Verified 05/04/24 10:17 codeine Allergy Unknown rash, GI Verified 05/04/24 10:17 update Sulfa (Sulfonamide AdvReac Severe per pt Verified 05/04/24 10:17 Antibiotics) upset stomach zinc AdvReac Mild GI upset, Verified 05/04/24 10:17 dizziness clonazepam (From Klonopin) AdvReac Unknown GI upset Verified 05/04/24 10:17 mushrooms Allergy Severe Anaphylaxsi Uncoded 05/04/24 10:17 s General Stated Complaint: Orthopedic AZALIA: 3 Exam Narrative Exam Narrative: 1.Const: Well-nourished, Well-developed, appearing stated age 2.Eyes: PERRL, no conjunctival injection, and symmetrical lids. 3.ENT: Atraumatic external nose and ears. Moist MM. Neck: Symmetric, trachea midline, No thyromegaly. 4.CVS: +S1/S2, Peripheral pulses 2+ and equal in all extremities. Brisk capillary refill in all extremities. 5.RESP: Unlabored respiratory effort. Clear to auscultation bilaterally. No wheezes rales or rhonchi 6.GI: Soft, Nontender/Nondistended, No hepatosplenomegaly. No guarding or rebound. 7.MSK: Right knee demonstrates no significant swelling, mild tenderness in the medial aspect, worsening pain with Philly's test. No ligamentous laxity. No laxity with anterior posterior drawer testing. Minimal pain with varus and valgus stressing. Left knee demonstrates evidence of mild swelling in the posterior aspect over the posterior popliteal fossa. No anterior medial or lateral tenderness. Minimal pain with Philly's test, no significant pain with varus or valgus stressing. 8.Skin: Warm, Dry. No rashes or lesions. 9.Neuro: ride mechanic II-XII grossly intact. Sensation grossly intact, no focal neurologic deficits. 10.Psych: (AAO) x3. Appropriate mood and affect Course Vital Signs Vital signs: Vital Signs Temperature 36.6 C 05/04/24 10:14 Pulse 110 H 05/04/24 10:14 Respiratory Rate 18 05/04/24 10:14 Blood Pressure 182/94 H 05/04/24 10:14 Pulse Oximetry 96 05/04/24 10:14 Temperature 36.6 C 05/04/24 10:14 Pulse 110 H 05/04/24 10:14 Respiratory Rate 18 05/04/24 10:14 Blood Pressure 182/94 H 05/04/24 10:14 Pulse Oximetry 96 05/04/24 10:14 Medical Decision Making 63-year-old female with past medical history of previous knee surgery, COPD, high cholesterol, depression, who presents today for evaluation of knee pain. Patient states that 2 weeks ago she fell and slipped on her driveway, and got up quickly. Between the quick falling and trauma and getting up quickly she ended up having pain in both of her knees. It has been persistent for the last 2 weeks, it is mild in nature, worse with movement. Left knee has pain in the posterior aspect of the knee, she has been wearing a knee brace and taking Tylenol but has had no improvement. Right knee has had pain in the medial aspect, worse with movement. There is some swelling in the left knee, minimal swelling in the right. Dr. Ch did her previous surgery. She has not had an opportunity to follow-up with them. Physical exam demonstrates well-appearing female, mild swelling in the posterior bursa of the left knee, no calf pain, normal pulses. No redness or warmth to suggest cellulitis. Right knee demonstrates mild medial tenderness over the medial aspect, mild pain with Philly's test. No ligamentous laxity. Suspect a Alvarez's cyst in the left knee is the cause of pain and achiness, suspect mild joint irritation in the right knee as a cause of pain. Patient is requesting x- rays in regards to potential for referral with orthopedics. Will get x-rays, apply Voltaren gel and Lidoderm patches, monitor closely and reassess. No evidence to suggest DVT or cellulitis based on exam. No evidence to suggest fracture based on chronicity of complaint. Symptoms do not appear consistent with tibial plateau fracture as there is no tibial plateau tenderness. Aside for the medialmost component on the right knee which is notably mild at that. 11:44 AM X-rays demonstrate no evidence of acute process. Patient is able to ambulate well. Will recommend continued conservative therapy with acetaminophen, Voltaren gel, Lidoderm patches. Recommend close follow-up with orthopedics. I have extensively reviewed the treatment plan and discharge instructions with the patient. I have addressed all patient concerns at this time. The patient was made aware of what symptoms to monitor for that would warrant a return to the emergency department. Discussed the plan with the patient, they demonstrate verbal understanding and agreement with our assessment and plan at this time. The documentation in this chart was dictated using Optimal [employer] dictation software. Please excuse any dictation errors. FINDINGS: Bones/joints: No acute fracture. Postop changes of ACL repair. The medial tibiofemoral joint space is narrowed. No joint effusion. Soft tissues: Normal. IMPRESSION: No acute trauma. Thank you for allowing us to participate in the care of your patient. Dictated and Authenticated by: Jonn Lemus MD 05/04/2024 11:14 AM Eastern Time ([place] & [place]) FINDINGS: Bones/joints: No acute fracture. Marked narrowing of the medial tibiofemoral joint compartment. No joint effusion. Soft tissues: Normal. IMPRESSION: No acute trauma. Medial osteoarthritic change. Thank you for allowing us to participate in the care of your patient. Dictated and Authenticated by: Jonn Lemus MD 05/04/2024 11:14 AM Eastern Time ([place] & [place]) Quality:SDOH Health Related Social Needs: No Data to Display PFSH All Active Problems Osteoarthritis of right knee (Acute) Synovial cyst of popliteal space [Alvarez], left knee (Acute) Nail dystrophy (Acute) Ingrown toenail (Acute) Fracture of second toe, right, closed (Acute) Hypertension (Chronic) Hyperlipidemia (Acute) Smoker (Acute) Bipolar disorder (Acute) Stage 2 moderate COPD by GOLD classification (Acute) Pain due to onychomycosis of toenails of both feet (Acute) Prediabetes (Acute) Elevated blood sugar (Acute) Persistent headaches (Acute) Knee pain (Acute) Anxiety associated with depression (Acute) Generalized headaches (Acute) Edentulous (Acute) Chronic shoulder pain (Acute) Onychomycosis (Acute) Illiteracy (Acute) Medical History Hx of iron deficiency anemia Exertional shortness of breath Shoulder pain, right Acute knee pain Asthma Depression Fracture of left distal radius Surgical History S/P JAYNE-BSO 11/11/2008 History of meniscal 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 Ch H/O colonoscopy 05/13/2011 History of ankle surgery Open reduction right fibula H/O: hysterectomy Social History Smoking/Tobacco Use Status: Current every day Tobacco Type: cigarettes Smoking packs per day: 0.5 Smoking cigarettes per day: 10.0 Smoking risk assessment performed?: Yes Alcohol Intake: never Drug use: Never Substance use type: does not use Household members: significant other and other Details: grandson Housing: apartment current occupation: disabled Current gender identity: female Do you feel safe at home: Yes Do you feel safe in your relationship?: Yes
--- OUTSIDE RECORDS SUMMARY | 2024-05-04 10:44 | XMS_ITS | Encounter Summary ---
Author Organization [facility] Address [address] [place] [address] Care Team Providers Care Chief Bank Examiner Name Role Phone Unknown, Provider Primary Care Provider Unava ilable Encounter Details Date Type Department Care Team (Late st Contact Info) Description 05/13/2011 Results Only [facility] [phone] Sabrina Miller, DO [address] [place] [address] Social History Tobacco Use Types Packs/Day Years Used Date Smoking Tobacco: Never Assessed Comments Unknown Sex and Gender Information Value Date Recorded Sex Assigned at Not on file Legal Sex Female 18:55 EST Gender Identity Not on file Sexual Orientation Not on file documented as of this encounter Plan of Treatment Not on file documented as of this encounter Procedures Procedure Name Priority Date/Time Associated Diagnosis Comments SURGICAL PATHOLOGY Routine 05/13/2011 0:00 EST documented in this encounter Results * SURGICAL PATHOLOGY (05/13/2011 0:00 EST) Pathology Report: SURGICAL PATHOLOGY REPORT Reports generated via electronic interface contain original data; however they are lacking the format of the original report. Caution should be taken when reading/interpreti ng unformatted reports. Name: ? HEIDI LEMONS ? Accession #: ? [id number] ? : ? 1960 (Age: 50) ??F ? Collect Date: ? 05/13/2011 ? Location: ? [facility] ? Receive Date: ? 05/13/2011 ? Provider: SABRINA MILLER DO Copy to: ALETA CANO ? Final Pathologic Diagnosis: A. ?Terminal ileum, biopsies: 1. ?Small bowel mucosa with no specific pathologic features. ??See comment. B. ?Colon, random, biopsies: 1. ?Colonic mucosa with no specific pathologic features. ? C. ?? Rectum, polyps, biopsies: ?1. ?? Fragments of hyperplastic polyp. Comment: ? Deeper levels were examined in specimen (A). ??No polyp was identified. (Dr. Payne)/[facility] Document reviewed and electronically signed by: ERIK MONTIEL MD Report ??Date: 05/18/2011 16:12 By the signature above, the attending physician certifies that he/she has personally conducted a gross and/or microscopic examination of the described specimens and rendered or confirmed the above diagnosis. Specimen(s) Received: A. ?Polyps terminal ileum B. ? Random colon bxs C. ? Rectal polyps Clinical History: ? Worsening constipation/obsti pation, family hx colon cancer Gross Description: ? Received in formalin labelled Lemons, Heidi and polyps terminal ileum is a single 0.3 x 0.3 x 0.2 cm pink-orozco irregular soft tissue. ??The specimen is submitted in toto as (A). Received in formalin labelled Lemons, Heidi and random colon biopsies are twenty pink-orozco irregular soft tissues ranging from 0.2 x 0.1 x 0.1 cm to 1.3 x 0.1 x 0.1 cm. ??The specimen is submitted in toto as (B1) to (B7). Received in formalin labelled Lemons, Heidi and rectal polyps are three pink-orozco irregular soft tissues ranging from 0.2 x 0.1 x 0.1 cm to 0.4 x 0.3 x 0.2 cm. ??The specimen is submitted in toto as (C). ??(Ridge Dupree)/[facility] End of Report RUKHSANA JONES 05/13/2011 05/13/2011 11: 07 EST us Sabrina Miller DO PATHOLOGY ORDERABLES Final Res ult RUKHSANA JONES [address] [place] [address] documented in this encounter Visit Diagnoses Not on filedocumented in this encounter Care Teams Chief Bank Examiner Relationship Specialty Start Date End Date Unknown, Provider, PCP - General 05/16/11 05/16/11 documented as of this encounter
--- OUTSIDE RECORDS SUMMARY | 2024-05-04 10:44 | XMS_ITS | Referral Summary ---
Author Organization [facility] Address [address] [place] [address] Care Team Providers Care Consumer Sales Representative Name Role Phone Unavailable Primary Care Provider Unavailabl e Social History Tobacco Use Types Packs/Day Years Used Date Smoking Tobacco: Never Assessed Comments Unknown Sex and Gender Information Value Date Recorded Sex Assigned at Not on file Legal Sex Female 18:55 EST Gender Identity Not on file Sexual Orientation Not on file Plan of Treatment Not on file Procedures Procedure Name Priority Date/Time Associated Diagnosis Comments HEPATITIS C AB W REFLEX TO HCV RNA BY PCR Routine 01/17/2023 10:40 EDT from Last 3 Months or Most Recently Relevant to Health Maintenance Results * HEPATITIS C AB W REFLEX TO HCV RNA BY PCR (01/17/2023 10:40 EDT) Hep C Antibody Negative Negative 01/18/2023 10:40 EDT [facility] Blood VENOUS BLOOD / Unknown 01/17/2023 10:40 EDT 01/17/2023 21:15 EDT us Provider Outr Resulting Lab CHEMISTRY & BLOOD GA S ORDERABLES Final Result [facility] [address] [place] [address] from Last 3 Months or Most Recently Relevant to Health Maintenance
--- OUTSIDE RECORDS SUMMARY | 2024-05-04 10:44 | XMS_ITS | Clinical Summary ---
Author Organization [facility] Address [address] [place] [address] Care Team Providers Care Therapeutic Recreation Director Name Role Phone Unavailable Primary Care Provider Unavailabl e Social History Tobacco Use Types Packs/Day Years Used Date Smoking Tobacco: Never Assessed Comments Unknown Sex and Gender Information Value Date Recorded Sex Assigned at Not on file Legal Sex Female 18:55 EST Gender Identity Not on file Sexual Orientation Not on file Plan of Treatment Health Maintenance Due Date Last Done Comments Social Determinants Of Health (SDOH) 1960 Lipid Profile Screening (Cholesterol) 07/29/1963 Depression Screening 1972 HIV Screening 1976 Advance Directive 1978 Preventive Care Visit 1978 Pertussis (Adult) Immunization 07/29/1979 Tetanus (Adult) Immunization 07/29/1979 Cervical Cancer Screening 1981 Pap Smear (Cervical Cancer Screening) 1981 HPV/Cotest (Cervical Cancer Screening) 1990 Breast Cancer Screening 2000 Cologuard (Colon Cancer Screening) 2005 Colonoscopy (Colon Cancer Screening) 2005 Colorectal Cancer Screening 2005 FIT Test (Colon Cancer Screening) 2005 Sigmoidoscopy (Colon Cancer Screening) 2005 Shingles Immunization (1 of 2) 2010 COVID-19 Vaccine ( season) 2023 Influenza Immunization (Adult) (#1) 2023 RSV Immunization ( o r 60+ Years) (1 - 1-dose 75+ series) 07/29/2035 Hepatitis C Screen Completed 01/17/2023 Procedures Procedure Name Priority Date/Time Associated Diagnosis Comments HEPATITIS C AB W REFLEX TO HCV RNA BY PCR Routine 01/17/2023 10:40 EDT from Last 3 Months or Most Recently Relevant to Health Maintenance Results * HEPATITIS C AB W REFLEX TO HCV RNA BY PCR (01/17/2023 10:40 EDT) Hep C Antibody Negative Negative 01/18/2023 10:40 EDT [facility] Blood VENOUS BLOOD / Unknown 01/17/2023 10:40 EDT 01/17/2023 21:15 EDT us Provider Outr Resulting Lab CHEMISTRY & BLOOD GA S ORDERABLES Final Result [facility] [address] [place] [address] from Last 3 Months or Most Recently Relevant to Health Maintenance
--- OUTSIDE RECORDS SUMMARY | 2024-05-04 10:44 | XMS_ITS | Encounter Summary ---
Author Organization [facility] Address [address] [place] [address] Care Team Providers Care Business Support Associate Name Role Phone Unavailable Primary Care Provider Unavailabl e Encounter Details Date Type Department Care Team (Late Contact Info) Description 01/17/2023 Lab Requisition [facility] Pathology & Laboratory Medicine - [address] [phone] Outr Resulting Lab, Provider Social History Tobacco Use Types Packs/Day Years [...] RNA BY PCR Routine 01/17/2023 10:40 EDT documented in this encounter Results * HEPATITIS C AB W REFLEX TO HCV RNA BY PCR (01/17/2023 10:40 EDT) Hep C Antibody Negative Negative 01/18/2023 10:[address] [facility] Blood VENOUS BLOOD / Unknown 01/17/2023 10:40 EDT 01/17/2023 21:15 EDT us Provider Outr Resulting Lab CHEMISTRY & BLOOD GA S ORDERABLES Final Result [facility] [address] [place] [address] documented in this encounter Visit Diagnoses Not on filedocumented in this encounter
[2024-05-04] MEDS: Lidocaine 5% Patch 2 PATCH TP (11:13)
[2024-05-04] MEDS: Diclofenac 1% Gel 100 GM TUBE TP (11:14)
--- NOTE | 2024-05-04 11:14 | DI.VRAD_ITS ---
PROCEDURE INFORMATION: Exam: XR Right Knee Exam date and time: 05/04/2024 11:01 AM Age: 63 years old Clinical indication: Injury or trauma; Fall; Blunt trauma; Knee; Right; Prior surgery; Surgery date: 6+ months; Surgery type: 6 years ago meniscus TECHNIQUE: Imaging protocol: Radiologic exam of the right knee. Views: 3 views. COMPARISON: CR XR KNEE RT 3V AP,LAT,ABDI 12/07/2020 1:49 PM FINDINGS: Bones/joints: No acute fracture. Postop changes of ACL repair. The medial tibiofemoral joint space is narrowed. No joint effusion. Soft tissues: Normal. IMPRESSION: No acute trauma. Dictated and Authenticated by: Jonn Lemus MD. Orderin Gomez Corrigan MD
--- NOTE | 2024-05-04 11:15 | DI.VRAD_ITS ---
PROCEDURE INFORMATION: Exam: XR Left Knee Exam date and time: 05/04/2024 11:00 AM Age: 63 years old Clinical indication: Injury or trauma; Fall; Blunt trauma; Knee; Left TECHNIQUE: Imaging protocol: Radiologic exam of the left knee. Views: 3 views. COMPARISON: No relevant prior studies available. FINDINGS: Bones/joints: No acute fracture. Marked narrowing of the medial tibiofemoral joint compartment. No joint effusion. Soft tissues: Normal. IMPRESSION: No acute trauma. Medial osteoarthritic change. Dictated and Authenticated by: Jonn Lemus MD. Orderin Gomez Corrigan MD
[2024-05-04 11:16] VITALS: BP 173/83; PULSE 101; RESP 18; O2SAT 96
[2024-05-04 11:56] VITALS: BP 173/83; PULSE 100
== END 2024-05-04 12:04 | disposition home or self-care (01) ==
PROVIDERS: Emergency Provider Student in an Organized Health Care Education/Training Program; PCP Physician Assistant
DX: M71.22 Synovial cyst of popliteal space [Baker], left knee (principal); M17.11 Unilateral primary osteoarthritis, right knee; I10 Essential (primary) hypertension; E78.5 Hyperlipidemia, unspecified; J44.9 Chronic obstructive pulmonary disease, unspecified; F17.210 Nicotine dependence, cigarettes, uncomplicated
CPT/HCPCS: 73562; 99283

== ENCOUNTER 2024-11-22 08:57 | Outpatient (CLI) | payer MEDICAID, SELFPAY ==
[2024-11-22 10:53] LABS: HCT 40.6 % (36.0-46.0); HGB 13.6 g/dL (11.2-15.7); MCH 28.5 pg (27.0-33.0); MCHC 33.5 % (32.0-36.0); MCV 85 fL (80-95); MPV 9.3 fL (8.0-11.0); Platelet Count 280 10^3/uL (130-400); RBC 4.78 10^6/uL (3.93-5.22); RDW 13.3 % (11.7-14.6); RDW-SD 41.4 fL; WBC 8.66 10^3/uL (4.4-10.8)
[2024-11-22 11:44] LABS: Anion Gap 12.7 mmol/L (3-11); BUN 29 mg/dL (7-18); CO2 26.3 mmol/L (21.0-32.0); Calcium 9.7 mg/dL (8.5-10.1); Chloride 99 mmol/L (98-107); Estimated GFR 71.39 (mL/min/1.73m2); Glucose 135 mg/dL (74-106); Potassium 4.1 mmol/L (3.5-5.1); Sodium 138 mmol/L (136-145)
== END 2024-11-22 08:58 | disposition home or self-care (01) ==
LOC: LBO 08:57
PROVIDERS: PCP Physician Assistant; Visit Provider Student in an Organized Health Care Education/Training Program
DX: M17.12 Unilateral primary osteoarthritis, left knee (principal); Z01.818 Encounter for other preprocedural examination
CPT/HCPCS: 36415; 80048; 85027

== ENCOUNTER 2024-11-22 09:58 | Outpatient (CLI) | payer MEDICAID, SELFPAY ==
--- NOTE | 2024-11-22 10:03 | DI.RAD_ITS ---
Exam(s) XR STANDING ALIGNMENT EXAM: XR STANDING ALIGNMENT CLINICAL HISTORY: PRE OP L TKA. TECHNIQUE: 2D digital imaging was performed. Four images were obtained. COMPARISON: CR XR ANKLE RT COMPLETE from 08/08/2023 CR,XR XR KNEE LT 3V AP,LAT,ABDI from 05/04/2024 CR,XR XR KNEE RT 3V AP,LAT,ABDI from 05/04/2024 FINDINGS: BONES: The hips are well maintained. In the right knee, there is mild narrowing of the medial femoral tibial joint. Osteophytes is seen both in the medial and lateral femoral tibial joint. There are findings of a prior ACL repair. In the left knee, there is marked narrowing of the medial femoral tibial joint. Osteophytes are seen particularly in the lateral femoral tibial joint. There lucencies in the distal fibula consistent with prior orthopedic hardware.There is no significant leg length discrepancy. SOFT TISSUE: Normal. IMPRESSION: Stable osteoarthritis of the knees. DATA REPOSITORY: RADIATION DOSE DELIVERED:
== END 2024-11-22 09:59 | disposition home or self-care (01) ==
LOC: DIORS 09:58
PROVIDERS: PCP Physician Assistant; Visit Provider Physician Assistant
DX: M17.12 Unilateral primary osteoarthritis, left knee (principal)
CPT/HCPCS: 77073

== ENCOUNTER 2024-11-27 09:54 | Day surgery (SDC) | payer MEDICAID, SELFPAY ==
[2024-11-27] VITALS (19 sets, daily range): BP systolic 100–135; BP diastolic 50–93; PULSE 69–76; RESP 12–19; TEMP 36.3–36.9; O2SAT 93–99; BMI 27.2
--- NOTE | 2024-11-27 07:30 | PDOC.DSDIS_ITS ---
Date of service: 11/27/24 Discharge Plan Disposition Patient Disposition: Home Condition: Good Discharge Details Reason For Visit: L XIMENAR Attending Provider: Russ Lua Primary Care Provider: Tomas Dickens Home Meds and New Rx's Prescriptions: New celecoxib 200 mg capsule 200 mg PO BID Qty: 60 0RF aspirin 81 mg tablet,delayed release (DR/EC) 81 mg PO BID Qty: 60 0RF acetaminophen 500 mg tablet 1,000 mg PO TID Qty: 90 3RF pantoprazole 40 mg tablet,delayed release (DR/EC) 40 mg PO DAILY Qty: 14 0RF dexamethasone 4 mg tablet 4 mg PO DAILY Qty: 2 0RF docusate sodium 100 mg capsule 100 mg PO BID PRNQty: 28 0RF gabapentin 300 mg capsule 300 mg PO QHS Qty: 14 0RF oxycodone 5 mg tablet 5 mg PO Q4H PRNQty: 18 0RF Continued atorvastatin [Lipitor] 20 mg tablet 40 mg PO HS fluticasone furoate [Arnuity Ellipta] 200 mcg/actuation blister with device 1 inh inhalation DAILY bisoprolol fumarate 5 mg tablet 10 mg PO DAILY bisacodyl [Dulcolax (bisacodyl)] 5 mg tablet,delayed release (DR/EC) 5 mg PO ONCE Qty: 4 0RF Rx Instructions: Take per colonoscopy instructions provided by ordering providers office polyethylene glycol 3350 17 gram/dose powder 17 g PO ONCE Qty: 238 0RF Rx Instructions: Take per colonoscopy instructions provided by ordering providers office ketoconazole 2 % cream 1 applic topical DAILY Qty: 120 6RF Rx Instructions: Apply to toenails once daily hydroxyzine HCl 25 mg tablet 25 mg PO QDAY PRN amlodipine 5 mg tablet 5 mg PO DAILY clotrimazole-betamethasone 1-0.05 % cream 1 applic topical BID tiotropium bromide [Spiriva with HandiHaler] 18 mcg capsule, w/inhalation device 1 cap inhalation DAILY Rx Instructions: puncture 1 cap using device; one dose = 2 inhalations sertraline 100 MG tablet 100 mg PO QAM quetiapine [Seroquel] 200 MG tablet 200 mg PO HS Patient Comments: pt says 200mg hs, and 50mg am oxcarbazepine 300 mg Tablet 600 mg PO HS lisinopril-hydrochlorothiazide 20-25 mg tablet 1 tab PO DAILY Patient Comments: TAKE ONE TABLET BY MOUTH ONCE DAILY Discontinued naproxen sodium [Aleve] 220 mg capsule 440 mg PO DAILY PRN Discharge Instructions Additional Instructions: Total Knee Discharge Instructions Activity: The most important activity is to walk and to work on gentle motion (both flexion and extension). You should try to take short walks a few times a day. It is important that when resting you work on keeping the knee straight. Avoid putting a pillow behind the knee as this will encourage flexion. Work on range of motion exercises as provided by Physical Therapy. - Start outpatient physical therapy within 2 weeks. - You should wear the CHEMO hose on both legs for 2 weeks. You may remove these at night. You may also use any compression sock in place of the CHEMO hose. - Utilize [employer] to review exercises, see videos on exercises and obtain basic information pertaining to your surgery and your recovery. Dressing: Remove the Sukhwinder wrap by 2 days after your surgery and put on the CHEMO stocking given to you from the hospital. Keep the surgical dressing (underneath the SUKHWINDER wrap) in place for at least one week. After the first week it may be removed and replaced with light gauze and tape or nothing. The wound and dressing may get wet after 3 days but avoid soaking the dressing or otherwise it will need to be changed. Many people prefer covering the dressing with cling wrap (saran wrap) to minimize it from getting soaked. If it gets wet, just pat dry. If it starts to peel off then it will need to be changed. Medications: - You should take Tylenol and anti-inflammatory Celebrex as your primary pain control medications. If the Celebrex is too expensive or not covered, please call the office for another alternative (Advil/Ibuprofen or Naproxen/Aleve) - You have been prescribed a stronger pain medication Oxycodone for breakthrough pain, take as needed as prescribed. - You have also been prescribed a stomach acid reduction agent Pantoprozole to help reduce stomach acid and reflux. - You have been prescribed Gabapentin to take at night for restlessness and nerve pain. - You will be taking Aspirin 81mg twice a day for DVT prevention unless instr ucted otherwise. - You have also been prescribed Decadron to take to control post-operative nausea and pain. You will start this tomorrow. - If you have constipation you should take Colace or Miralax (both [id number]). It takes most people 3-4 days to have a bowel movement. Follow-up: 2 weeks If you have any acute concerns or questions, please do not hesitate to contact the office at [phone]. You may contact Dr. Lua with any questions after hours through the hospital at [phone] or on his cell phone at [phone]. Referrals: Russ Lua MD [ [facility] STAFF PHYSICIAN, Orthopaedic Surgical] Equipment/Supplies: Walker Activity:: Activity as Tolerated Shower/Bathe:: 72 hours Diet:: As Tolerated Discharge Orders Discharge Orders: Discharge Order (Routine); Ordered 11/27/24 Ordered By: Kyler Cordova DS: Diagnosis Discharge Diagnosis (1) Left knee DJD: Status: Chronic
--- NOTE | 2024-11-27 08:59 | W.ANESPRE ---
General Info Date of Service Date Performed: 11/27/24 Height: 5 ft 6 in Weight: 76.657 kg Body Mass Index (BMI): 27.2 Surgical Procedure: Operation Date: 11/27/24 13:25 Proposed Procedure Side Surgeon p Knee Total Arthroplasty Left Russ Lua MD Meds Allergies and Home Medications Allergies Allergy/AdvReac Type Severity Reaction Status Date / Time aspirin Allergy Mild Skin Rash Verified 11/27/24 10:09 & upset stomach per pt Penicillins Allergy Mild Skin Rash Verified 11/27/24 10:09 codeine Allergy Unknown rash, GI Verified 11/27/24 10:09 update Sulfa (Sulfonamide AdvReac Severe per pt Verified 11/27/24 10:09 Antibiotics) upset stomach zinc AdvReac Mild GI upset, Verified 11/27/24 10:09 dizziness clonazepam (From Klonopin) AdvReac Unknown GI upset Verified 11/27/24 10:09 mushrooms Allergy Severe Anaphylaxsi Uncoded 11/27/24 10:09 s Home Medication ?Medication ?Instructions ?Recorded quetiapine 200 mg tablet (Seroquel) 200 mg PO HS 11/13/12 sertraline 100 mg tablet 100 mg PO QAM 11/13/12 oxcarbazepine 300 mg tablet 600 mg PO HS 04/15/19 lisinopril 20 1 tab PO DAILY 05/27/22 mg-hydrochlorothiazide 25 mg tablet hydroxyzine HCl 25 mg tablet 25 mg PO QDAY PRN 02/16/23 bisacodyl 5 mg tablet,delayed 5 mg PO ONCE #4 tabs 03/09/23 release (Dulcolax (bisacodyl)) polyethylene glycol 3350 17 17 g PO ONCE #238 grams 03/09/23 gram/dose oral powder amlodipine 5 mg tablet 5 mg PO DAILY 03/24/23 clotrimazole-betamethasone 1 1 applic topical BID 03/24/23 %-0.05 % topical cream tiotropium bromide 18 mcg capsule 1 cap inhalation DAILY 03/24/23 with inhalation device (Spiriva with HandiHaler) ketoconazole 2 % topical cream 1 applic topical DAILY #120 grams 05/01/23 atorvastatin 20 mg tablet (Lipitor) 40 mg PO HS 07/11/24 fluticasone furoate 200 1 inh inhalation DAILY 07/11/24 mcg/actuation blister powder for inhalation (Arnuity Ellipta) bisoprolol fumarate 5 mg tablet 10 mg PO DAILY 11/22/24 acetaminophen 500 mg tablet 1,000 mg (2 x 500 mg) PO TID #90 11/27/24 tabs aspirin 81 mg tablet,delayed 81 mg PO BID #60 tabs 11/27/24 release celecoxib 200 mg capsule 200 mg PO BID #60 caps 11/27/24 celecoxib 400 mg capsule 400 mg PO DAILY 11/27/24 dexamethasone 4 mg tablet 4 mg PO DAILY #2 tabs 11/27/24 docusate sodium 100 mg capsule 100 mg PO BID PRN #28 caps 11/27/24 gabapentin 300 mg capsule 300 mg PO QHS #14 caps 11/27/24 oxycodone 5 mg tablet 5 mg PO Q4H PRN #18 tabs 11/27/24 pantoprazole 40 mg tablet,delayed 40 mg PO DAILY #14 tabs 11/27/24 release Current Visit Medications: Current Medications Generic Name Dose Route Start Last Admin Trade Name [facility] PRN Reason Stop Dose Admin Acetaminophen 1,000 mg 11/27/24 06:00 Acetaminophen 500 Mg Tab PO 11/27/24 23:59 PREOP BILLIE Acetaminophen 1,000 mg 11/27/24 07:28 Acetaminophen 500 Mg Tab PO 12/27/24 07:27 TID PRN PRN Analgesia Celecoxib 400 mg 11/27/24 06:00 Celecoxib 200 Mg Cap PO 11/27/24 23:59 PREOP BILLIE Docusate Sodium 100 mg 11/27/24 07:28 Docusate Sodium 100 Mg Cap PO 12/27/24 07:27 BID PRN PRN Constipation Gabapentin 300 mg 11/27/24 06:00 Gabapentin 300 Mg Cap PO 11/27/24 23:59 PREOP BILLIE Ringer's Solution 1,000 mls @ 80 mls/hr 11/27/24 06:00 IV 11/27/24 23:59 INFUSION BILLIE Cefazolin Sodium/Dextrose 2 gm in 50 mls @ 100 mls/hr 11/27/24 06:00 Ancef Duplex IVPB 11/27/24 23:59 PREOP BILLIE Tranexamic Acid/Sodium Chloride 1,000 mg in 100 mls @ 600 mls/hr 11/27/24 06:00 IVPB 11/27/24 23:59 PREOP BILLIE IV Miscellaneous Supplies 1 each 11/27/24 06:00 Iv Access IV 11/27/24 23:59 DIRECTED BILLIE Ondansetron HCl 4 mg 11/27/24 07:28 Ondansetron 4 Mg/2 Ml Vial IVP 12/27/24 07:27 Q6H PRN PRN Nausea Oxycodone HCl 0 mg 11/27/24 07:28 Oxycodone 5 Mg Tab PO 12/27/24 07:27 Q3H PRN PRN Pain Polyethylene Glycol 17 gm 11/27/24 07:28 Polyethylene Glycol 3350 17 Gm Packet PO 12/27/24 07:27 BID PRN PRN Constipation Sodium Chloride 0 ml 11/27/24 06:00 Normal Saline Flush 10 Ml Syr IV 11/27/24 23:59 PRN PRN Sodium Chloride 0 ml 11/27/24 06:00 Normal Saline 10 Ml Vial IJ 11/27/24 23:59 DIRECTED PRN Sterile Water 0 ml 11/27/24 06:00 Water,Injection,Sterile 10 Ml Vial IJ 11/27/24 23:59 DIRECTED PRN Tranexamic Acid 1,300 mg 11/27/24 07:28 Tranexamic Acid 650 Mg Tab PO 12/27/24 23:[address] [facility] Active Problems Active Problems: Problem Status Onset Code History of left knee replacement Acute 11/27/24 Z96.652 Nail dystrophy Acute L60.3 Ingrown toenail Acute L60.0 Fracture of second toe, right, closed Acute S92.501A Hypertension Chronic I10 Hyperlipidemia Acute E78.5 Smoker Acute F17.200 Bipolar disorder Acute F31.9 Stage 2 moderate COPD by GOLD classification Acute J44.9 Pain due to onychomycosis of toenails of both feet Acute B35.1, M79.675, M79.674 Prediabetes Acute R73.03 Elevated blood sugar Acute R73.9 Persistent headaches Acute R51.9 Knee pain Acute M25.569 Anxiety associated with depression Acute F41.8 Generalized headaches Acute R51.9 Edentulous Acute K08.109 Chronic shoulder pain Acute M25.519, G89.29 Onychomycosis Acute B35.1 Illiteracy Acute Z55.0 Medical History Medical History Hx of iron deficiency anemia Exertional shortness of breath Shoulder pain, right Acute knee pain Asthma Depression Fracture of left distal radius Medical History Comments:: Per pt. states her mom was allergic to anesthesia, she just couldnt go under, she had a bad heart Surgical History Surgical History S/P JAYNE-BSO 11/11/2008 History of meniscal 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 Ch H/O colonoscopy 05/13/2011 History of ankle surgery Open reduction right fibula H/O: hysterectomy Tobacco Smoking/Tobacco Use Status: Current every day Tobacco Type: cigarettes Smoking packs per day: 0.5 Smoking cigarettes per day: 10.0 Passive smoking exposure: Yes Alcohol Alcohol Intake: never Substance Use Substance use: Never Substance use type: does not use Vital Signs and Lab Results Vital Signs Most Recent Vital Signs in EMR: Temp Pulse Resp BP Pulse Ox 36.5 C 72 15 119/55 L 99 11/27/24 10:00 11/27/24 10:00 11/27/24 10:00 11/27/24 10:00 11/27/24 10:00 Lab Results Complete Blood Count: WBC, (4.4-10.8) 8.66 10^3/uL 11/22/24, 10:45 RBC, (3.93-5.22) 4.78 10^6/uL 11/22/24, 10:45 Hgb, (11.2-15.7) 13.6 g/dL 11/22/24, 10:45 Hct, (36.0-46.0) 40.6 % 11/22/24, 10:45 Plt Count, (130-400) 280 10^3/uL 11/22/24, 10:45 Complete Metabolic Panel: Sodium, (136-145) 138 mmol/L 11/22/24, 10:45 Potassium, (3.5-5.1) 4.1 mmol/L 11/22/24, 10:45 Chloride, (98-107) 99 mmol/L 11/22/24, 10:45 Carbon Dioxide, (21.0-32.0) 26.3 mmol/L 11/22/24, 10:45 BUN, (7-18) 29 mg/dL H 11/22/24, 10:45 Creatinine, (0.55-1.02) 0.9 mg/dL 11/22/24, 10:45 Est GFR (CKD-EPI 2020), (mL/min/1.73m2) 71.39 11/22/24, 10:45 Calcium, (8.5-10.1) 9.7 mg/dL 11/22/24, 10:45 Glucose, (74-106) 135 mg/dL H 11/22/24, 10:45 Anesthesia Assessment and Plan Anesthesia History Personal History: No History of Anesthesia Complications Family History: No Family History of Anesthesia Complications Exercise Tolerance Exercise Tolerance: Metabolic Equivalents>4 Cardiac & Pulmonary Exam Cardiac Exam: Normal S1/S2 Heart Sounds Pulmonary Exam: Clear Bilateral Breath Sounds Implantable Cardiac Device Does patient have a Pacemaker or an ICD?: No Airway Exam Known Difficult Airway: No Mallampati Class: 3 Mouth Opening: Normal (> 3cm) Thyromental Distance: Greater than 3 cm Neck Range of Motion: Full ROM Neck Circumference: Normal Teeth Condition: Removable Dentures/Plates Upper and Edentulous ASA Classification ASA Score: ASA 2 Emergency Case?: No NPO Status NPO Status: NPO Clears >2 hours, Solids >8 hours Anesthesia Plan Resuscitation Status: Full Code Anesthesia Technique: Spinal Anesthesia Airway Planned: Natural Airway Pain Management: Surgeon and patient request nerve block Monitors Used: Standard Monitors Preoperative Comments:: 64 yo for TKA. Sig PMHx: HTN (amlodipine, lisinopril, HCTZ. 140/70 at PCP. 120/ at home), COPD (Arnuity Ellipta, Spiriva. Breathing feels good today), GERD (pantoprazole. Denies issues with reflux), PreDM (6.1 A1c), anxiety/depression/bipolar, smoker. PFTs: moderately severe obstructive dz with sig bronchodilator response. Mild restrictive dz. Previous Aes: - Closed reduction, ketamine/midaz/prop, natural airway, no issues.
[2024-11-27] MEDS: Gabapentin 300 MG CAP PO (10:37)
[2024-11-27] MEDS: Celecoxib 200 MG CAP 400 MG PO (10:37)
[2024-11-27] MEDS: Acetaminophen 500 MG TAB 1000 MG PO (10:37)
[2024-11-27] MEDS: Lactated Ringers 1,000 ML 80 ML IV (10:50)
[2024-11-27] MEDS: ceFAZolin 2 GM/50 ML BAG IVPB (12:25)
[2024-11-27] MEDS: TRANEXAMIC ACID/SOD. CHL. 1,000 MG/100 ML BAG 600 MG IVPB (12:29)
--- NOTE | 2024-11-27 12:29 | ROE_ITS ---
Operative Note Operative Note PRE-OP DIAGNOSIS: Left Knee Osteoarthritis POST-OP DIAGNOSIS: same PROCEDURE: Left Total Knee Replacement SURGEON: Russ Lua [employer]CT [employer]PER[employer] HELPER: Felicia Cordova ANESTHESIA TYPE: Spinal Refer to Anesthesia Record ESTIMATED BLOOD LOSS: 100 PATHOLOGY: none sent TOURNIQUET TIME: 0 COMPLICATIONS: None Patient was transported to: PACU Patient's condition: stable Implants: 1. Depuy Attune Cementless Cruciate Retaining Femoral Component, Size 4 2. Depuy Attune Cementless Fixed Bearing Tibial Component, Size 4 3. Depuy Attune 4x6mm CR/FB Poly 4. Depuy Attune Patellar Component, Size 35mm Indications: I have seen Heidi in clinic for symptoms of knee arthritis, confirmed with radiographic findings. He has exhausted nonoperative methods and was having significant limitations in daily function and desired better function and less pain. I discussed the technical details of a knee replacement. I explained the risks of the procedure to include, but not limited to, bleeding, infection, pain, stiffness, fracture, damage to nerves and vessels, damage to muscles and tendons, loosening, need for repeat procedure, blood clot and cardiopulmonary demise. Despite these risks, Heidi elected to proceed. Findings: There was significant signs of arthritis throughout the knee, focused medially. Procedure Description: Heidi was greeted in the preoperative holding area where the correct side was identified and marked. The consent was reviewed with the patient and signed. The history and physical was updated. All questions were answered. Preoperative medications were administered: Acetaminophen 1000mg, Celebrex 400mg, and Gabapentin 300mg. An adductor canal block was then administered by the anesthesia team in the DSU. She was taken back to the operating room. A spinal anesthestic was then ad ministered. The patient was placed into the supine position on the operating room table. Posts were placed for positioning during the procedure. All bony prominences were well padded. Prophylactic antibiotics in the form of Cefazolin were administered. 1g of Tranxemic Acid was given intravenously within 30 minutes of incision. The left leg was then prepped with Chloraprep and draped in a standard fashion with impervious stockinette. A second prep with Chloraprep was performed prior to application of Iodine impregnated skin protection. A timeout to confirm correct identity, side and site, procedure, allergies, anesthesia, and medical concerns was performed. With the knee in some flexion, a midline incision was made overlying the knee. Full thickness skin flaps were raised once the extensor mechanism was encountered. These were raised medially and laterally. Any bleeding was controlled with electrocautery. Once the extensor mechanism was fully exposed, a medial parapatellar arthrotomy was performed in a flexed position. All bleeding from the arthrotomy and the geniculate arteries was coagulated. A medial subperiosteal peel was performed with electrocautery to the midcoronal plane. The fat pad was removed while keeping the patellar tendon protected. The anterior distal femur synovium was removed for later visualization. The ACL and PCL were resected and the anterior horn of the lateral meniscus was transected. The knee was then flexed with the patella everted. Large osteophytes from the tibia were removed. Large osteophytes from the femur were removed. Using a step drill, and based on preoperative templating, the femoral canal was entered. This was done with a step drill without any difficulty. The intramedullary distal femoral cut guide was inserted, set to a 5 degree valgus cut and 9mm cut thickness. The distal femoral cut guide was then held in position and pinned. With the soft tissues protected, the distal cut was performed. This was passed over a few times to ensure a planar cut. I then turned attention to the tibia. The extramedullary guide was placed onto the leg. The distal aspect was slid medial to adjust for position of center of ankle and stay in line with shaft of the tibia. Approximately 5 degrees of posterior slope was kept in the proximal cutting guide. The center of the guide was aligned with the PCL. The stylus was used to assess cut thickness. The medial side, most involved side, was set for a 6mm cut, corresponding to 9mm laterally. This was then held in position and pinned into place with 2 additional pins and a cross pin for stability. The medial and lateral collateral ligaments were protected and the cut was performed. With this completed, it was assessed and noted to be of appropriate dimensions. The guide was removed. A spacer block was inserted and the knee was brought into extension. The 6mm spacer block provided full extension, without hyperextension and with stability of both the medial and lateral collateral ligaments was assessed. The pins from the femur and the tibia were then removed. The distal femur was then sized. The anterior stylus was placed onto the lateral ridge of the anterior femur. This indicated a size 6 femur. The external rotation of the guide was adjusted to 0 degrees to match the epicondylar axis, perpendicular to Kent?s line. The 4-in-1 cutting guide was the placed. The posterior medial femur cut was evaluated and appeared of good thickness. The spacer block was inserted underneath the cutting guide and stability was confirmed in 90 degrees of flexion. An soni wing was used to confirm appropriate position of the anterior cut to avoid notching. This cutting guide was ensured to be flush on the cut surface and then pinned into place with headed pins. While protecting the soft tissues, quad tendon, and collateral ligaments, the anterior and posterior cuts were performed with a saw. The central two pins were removed and the posterior and anterior chamfers were cut next. The notch-cutting guide was placed. This was pinned to lateralize the femoral component as much as possible while keeping it flush on the cut surface. This was then pinned into position. A reciprocating saw was used to make the notch cut. A rasp smoothed the cut surfaces. The medial and lateral menisci were removed. A trial femoral component was then inserted, impacted down to the cut surfaces, and the lug holes were drilled. A provisional trial tibial component was placed and the knee was brought through range of motion. There was noted to be excellent extension and flexion. There was no significant instability. The patella was tracking without thumbs. A size 6mm polyethylene component provided the best range of motion and stability with less than 2mm gapping with medial and lateral stress and full extension without significant hyperextension. The tibial cut surface was fully exposed. The tibia was then sized as a 4. The tibia had been previously marked during trialing to correspond to the center of the tibial component to help with rotation. The trial was aligned to this felicia, approximately rotated to the medial 1/3rd of the tibial tubercle. The trial was pinned into place. The tibia was prepared with a reamer and a keel punch and lug holes. The knee was then brought into extension and the patella was measured as 22mm. Using the patellar clamp and cut guide, this was resected to a flat surface with at least 13mm of thickness remaining. The size 35mm patella fit the best. This was oriented and then clamped into position. The lugs were drilled. The trial components were removed. The final components were opened on the back table. The periosteal and capsular tissues, especially posteriorly, around the knee were then systematically injected with a periarticular cocktail consisting of 246mg of Ropivacaine, 0.5mg of Epinephrine, 0.08mg of Clonidine, and 30mg of Ketorolac, diluted to 100cc. On the back table, with the implants opened. The cement was mixed. One batch of high viscosity cement was prepared with vacuum assistance. After the cement was ready a small amount was placed on the cut surface of the patella and the patellar button was clamped into position and held. The cementless knee components were placed. Starting with the tibial component, the tibia was subluxed anteriorly and the lug holes of the component were lined up. The tibia was then impacted with an impactor and mallet until the tibial component was in contact with the tibia. Then, the femoral component was inserted. The lug holes were aligned and the component was impacted into position. The final polyethylene component was inserted. The knee was irrigated with Surgiphor Betadine solution. This was allowed to sit in the knee for 3 minutes and then it was irrigated out with saline. After the cement had finally cured, approximately 15min, the clamp was removed from the patella and the knee was taken through range of motion. The patella was tracking with a no-thumbs technique. A complete synovectomy was performed around the periphery of the patella. The capsule was then reapproximated with a No. 1 Vicryl at multiple locations. The capsule was finally closed with a No. 2 Stratafix, barbed suture. Deep tissues were then reapproximated with 0 Vicryl and 2-0 Vicryl. The skin was closed with a running 3-0 Monocryl in a subcuticular fashion. This was reinforced with skin glue. A Mepilex silver dressing was applied along with a [id number] MANUEL wrap. A CryoCuff was applied. Heidi was transferred to the hospital bed without difficulty an suffering no apparent complication. Heidi has a good prognosis. Physical therapy will start today and without restrictions, weight-bearing as tolerated. Aspirin 81mg BID will be used for DVT prophylaxis. Date of Procedure: 11/27/24
--- NOTE | 2024-11-27 14:21 | W.ANESPOSTOP ---
Postoperative Evaluation Date, Time and Location Date Performed: 11/27/24 Time Performed: 14:21 Patient Location: PACU Vital Signs Most Recent Imported Vital Signs: Most Recent Vital Signs Temp Pulse Resp BP Pulse Ox 36.4 C L 69 18 101/61 97 11/27/24 14:04 11/27/24 11:24 11/27/24 11:24 11/27/24 11:24 11/27/24 11:24 Pain Score Most Recent Pain Score: Most Recent Pain Score Pain Level 0 11/27/24 14:04 Assessment Mental Status: Awake (Alert & Oriented to Patient Baseline) Airway and Respiratory Function: Patent airway with normal (patient baseline) respiratory exam Cardiovascular Function: Hemodynamically Stable Hydration Status: Adequately Hydrated Nausea & Vomiting: No Nausea or Vomiting Pain: Pain is tolerable per patient Peripheral Nerve Block: Regional nerve block not resolved at time of post operative discharge
[2024-11-27] MEDS: fentaNYL 100 MCG/2 ML VIAL IVP (14:25)
[2024-11-27] MEDS: Tranexamic Acid 650 MG TAB 1300 MG PO (15:08)
[2024-11-27] MEDS: oxyCODONE 5 MG TAB PO (15:08)
--- NOTE | 2024-11-27 15:33 | PT.INIE ---
PT Notes Visit Reasons: L TKR Physical Therapy Day Surgery Initial Evaluation Date: 11/27/2024 Referring Doctor: VJ Haddad PT Orders: PT CONSULT: S/P Ortho Surgery Precautions: WBAT through the l LE with AD. Patient Profile/Admitting Diagnosis: Heidi is a 64-year-old female with primary unilateral osteoarthritis of the left knee and status post left total knee arthroplasty on postoperative day 0. PMHX: All Active Problems Left knee DJD (Chronic) Nail dystrophy (Acute) Ingrown toenail (Acute) Fracture of second toe, right, closed (Acute) Hypertension (Chronic) Hyperlipidemia (Acute) Smoker (Acute) Bipolar disorder (Acute) Stage 2 moderate COPD by GOLD classification (Acute) Pain due to onychomycosis of toenails of both feet (Acute) Prediabetes (Acute) Elevated blood sugar (Acute) Persistent headaches (Acute) Knee pain (Acute) Anxiety associated with depression (Acute) Generalized headaches (Acute) Edentulous (Acute) Chronic shoulder pain (Acute) Onychomycosis (Acute) Illiteracy (Acute) Medical History Hx of iron deficiency anemia Exertional shortness of breath Shoulder pain, right Acute knee pain Asthma Depression Fracture of left distal radius Surgical History S/P JAYNE-BSO 11/11/2008History of meniscal 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 Ch H/O colonoscopy 05/13/2011 History of ankle surgery Open reduction right fibula H/O: hysterectomy Social History/Home Situation: Lives with SO in a private home with 3steps to enter. Equipment Owned/DME: None Subjective: reported discomfmort in the L knww at 1-2. Has already gone to the bathroom to void urine with Nurse Kim prior to PT evalaution Objective: General Observation: MANUEL wraps on L LE. Cryocuff on L LE. Mental Status: A and O x 4 Pain: 1-2/10 in the L knee ROM: Right Lower Extremity: Hip flexion WFL. Hip abduction WFL. Knee flexion WFL. Ankle dorsiflexion WFL. Ankle plantarflexion WFL. Left Lower Extremity: Hip flexion WFL. Hip abduction WFL. Knee flexion 0-90 degrees. Ankle dorsiflexion WFL. Ankle plantarflexion WFL. Strength: Right Lower Extremity: Hip flexors 5/5. Hip abductors 5/5. Knee flexors 5/5. Knee extensors 5/5. Ankle dorsiflexors 5/5. Ankle plantarflexors 5/5. Left Lower Extremity:Hip flexors 5/5. Hip abductors 5/5. Knee flexors 3-/5. Knee extensors 5/5. Ankle dorsiflexors 5/5. Ankle plantarflexors 5/5. Sensation: Intact as to pain and light pressure in B LE Bed Mobility/Transfers: Minimal cueing provided for use of B hands as needed for support, movement sequence, AD management, and posture to reduce fall risk and minimize pain report Supine to sit stand by assist Sit to stand contact-guard assist with FWW Stand to sit stand by assist with FWW Bed to chair stand by assist with FWW Gait: Facilitate safe and correct performance of level surface ambulation covering a distance of 150 feet using front wheeled walker with reciprocal step through gait pattern requiring standby assist and minimal verbal cueing for limb movement sequence, AD management, weight distribution, and posture to minimize pain report and reduce fall risk. Stairs: Guided patient with safe and correct negotiation of 3 x 4 inch steps and 2 x 6 inch steps while holding onto bilateral rails with step to gait pattern requiring minimal verbal cueing for hand placement, increased knee flexion on the left with each ascent, weight distribution, and posture to minimize pain report and reduce fall risk. Balance: Static Sitting: Normal Dynamic Sitting: Normal Static Standing: Fair Dynamic Standing: Fair Special Tests: Mobility Limitations Standardized Measure [facility] AM-PAC 6 clicks Basic Mobility Inpatient Short Form: Raw Score: 22 CMS Score: 21 % deficit Informed Consent/Education: Patient instructed in purpose of PT consult. Packet containing TKA exercise protocol has been given to patient. Education and training on initial set of exercises that can be done at home have been completed with patient. Trained patient with correct performance of exercises below to maximize motor control, joint flexibility, soft tissue extensibility of the L knee musculature: Access Code: [email or web address] URL: [email or web address] Date: 10/11/2022 Prepared by: Kathryn Osman Exercises - Supine Quad Set - 1 x daily - 7 x weekly - 1 sets - 10 reps - 5 hold - Supine Heel Slide - 1 x daily - 7 x weekly - 1 sets - 10 reps - 5 hold - Supine Ankle Pumps - 1 x daily - 7 x weekly - 1 sets - 10 reps - 5 hold - Small Range Straight Leg Raise - 1 x daily - 7 x weekly - 1 sets - 10 reps - 5 hold - Seated March - 1 x daily - 7 x weekly - 1 sets - 10 reps - 5 hold Assessment: Patient requires the use of a front wheeled walker for mobility ADL performance to maximize independence and reduce fall risk Status post left total knee arthroplasty on postoperative day 0. Patient presents with clinical signs and symptoms consistent with current/admitting diagnoses that have resulted to mobility limitations, gait instability, generalized weakness, and impairment of motor control as demonstrated by the following impairment level findings: 1. Decreased strength to left knee major muscle groups 2. Impaired standing balance 3. Limitation of joint range of motion in left knee Impairments are contributing to the following functional limitations: 1. Inability to safely ambulate without assistive device 2. Increase completion time for mobility ADL performance 3. Increased fall risk Patient is assessed as a [id number] moderate complexity based on the following: History: -year-old female evolving with impairment level findings, functional limitations, and past medical history as indicated above Examination: Demonstrable impairment in strength, balance, and mobility level with underlying impairments and functional limitations as documented above Presentation: Evolving Decision Makin moderate complexity Goals: N/A. PT evaluation and 1-2 treatment sessions only for functional mobility training using recommended AD and for HEP instruction. Plan of Care/Treatment Plan: N/A. PT evaluation and 1-2 treatment session only for functional mobility training using recommended AD and for HEP instruction. DISCHARGE RECOMMENDATIONS: Home when medically cleared by orthopedic surgeon. Recommend outpatient PT services in order to optimize functional mobility outcomes and facilitate return to independent community ambulation without an assistive device. TREATMENT CODE/TIME: 52096 x 29 minutes for 1 unit (15: 33?16: 02). Thank you for the opportunity to participate in the care of this patient. Kathryn Osman PT, DPT, CLT [facility] [place], [place]
== END 2024-11-27 16:43 | disposition home or self-care (01) ==
LOC: SUR 09:54
PROVIDERS: PCP Physician Assistant; Visit Provider Student in an Organized Health Care Education/Training Program
PROC: (CPT 27447; principal; 2024-11-27 13:15)
DX: M17.12 Unilateral primary osteoarthritis, left knee (principal); I10 Essential (primary) hypertension; J44.9 Chronic obstructive pulmonary disease, unspecified; Z72.0 Tobacco use; K21.9 Gastro-esophageal reflux disease without esophagitis
CPT/HCPCS: 27447; 97162; C1776; J0665; J0690; J1100; J2371; J2401; J2405; J2704; J3010

== ENCOUNTER 2024-12-12 11:45 | Outpatient (CLI) | payer MEDICAID, SELFPAY ==
--- NOTE | 2024-12-12 10:30 | DI.RAD_ITS ---
Exam(s) XR KNEE LT 1V XR STANDING ALIGNMENT EXAM: XR STANDING ALIGNMENT CLINICAL HISTORY: 1ST POST OP S/P L TKA. TECHNIQUE: 2D digital imaging was performed. Standing AP views were performed from the pelvis through the ankles. Lateral weight-bearing view left knee. COMPARISON: CR,XR XR KNEE RT 3V AP,LAT,ABDI from 05/04/2024 CR XR STANDING ALIGNMENT from 11/22/2024 CR XR KNEE LT 1V from 12/12/2024 FINDINGS: BONES: No acute fracture is present. No bony destructive lesion is seen. Leg length discrepancy: Mild overall leg length discrepancy the left femoral head projecting 5 millimeters superior to the right.. JOINTS: Knees: Patient is status post placement of a left knee prosthesis since the prior exam. The alignment appears satisfactory. There is moderate to severe narrowing of the medial femoral tibial joint space. There is mild varus angulation. There is evidence of prior ACL repair. The ankle joints are unremarkable. The hip joints are unremarkable. SOFT TISSUE: Normal. IMPRESSION: Moderate to severe degenerative changes of the medial femoral tibial joint of the right knee. Status post placement of left knee prosthesis.. Mild leg length discrepancy. DATA REPOSITORY: RADIATION DOSE DELIVERED:
== END 2024-12-12 11:46 | disposition home or self-care (01) ==
LOC: DIORS 11:45
PROVIDERS: PCP Physician Assistant; Visit Provider Student in an Organized Health Care Education/Training Program
DX: Z96.652 Presence of left artificial knee joint (principal); M17.11 Unilateral primary osteoarthritis, right knee
CPT/HCPCS: 73560; 77073

== ENCOUNTER → 2025-03-11 00:50 | Outpatient (CLI) | payer MEDICAID, SELFPAY ==
--- NOTE | 2025-03-11 12:46 | DI.MAMMO_ITS ---
Exam(s) MAMMO SCREENING EXAM: MAMMO SCREENING CLINICAL HISTORY: SCREENING, Z12.31. TECHNIQUE: Bilateral full field digital CC and MLO mammographic images were obtained with 3D tomosynthesis and utilizing computer aided detection (CAD). COMPARISON: Prior mammograms were reviewed. FINDINGS: There has been no significant change in the appearance and distribution of the fibroglandular tissue. No CAD designations. There are no new spiculated masses nor malignant appearing microcalcification groups. There is no significant architectural distortion nor skin thickening-retraction. IMPRESSION: No radiographic evidence of malignancy. BI-RADS Category 1 - Negative Breast Density - Category B - There are scattered areas of fibroglandular density. Breast density Category C or D implies that the patient has dense breast tissue. Dense breast tissue can make it harder to find cancer on a mammogram. Dense breast tissue is also associated with an increased risk of breast cancer. This information about the result of the mammogram report was provided to the patient to raise their awareness. Use this report when you speak with the patient about their risks for breast cancer, which includes their family history. At that time, you may recommend additional screening tests (Ultrasound or MRI) as these tests may add significant information. A negative radiographic report should not delay biopsy if a dominant or clinically suspicious mass is present. Up to ten percent of cancers are not identified on mammography. A negative report may reinforce clinical impression. Adenosis and dense breasts may obscure an underlying neoplasm. False positive reports average 6 to 10%. Patient will receive a letter notifying them of these results.
== END ==
LOC: DI 00:50
PROVIDERS: PCP Physician Assistant; Visit Provider Physician Assistant
DX: Z12.31 Encounter for screening mammogram for malignant neoplasm of breast (principal)
CPT/HCPCS: 77063; 77067